=== PATIENT | female | born 1955 | race Caucasian/White ===

== ENCOUNTER 2017-02-03 00:11 | Emergency (ER) | payer BC ==
--- NOTE | 2017-02-03 00:32 | EDM.PDOC ---
ED HPI GENERAL MEDICAL PROBLEM - General Chief Complaint: Gastrointestinal Problem Stated Complaint: RECTAL BLEEDING Time Seen by Provider: 02/03/17 00:31 Source of Information: Reports: Patient - History of Present Illness INITIAL COMMENTS - FREE TEXT/NARRATIVE: HISTORY AND PHYSICAL: History of present illness: []Patient presents with bright red blood per rectum associated with bowel movement night at approximately 11:30, she states her tissue did have bright red blood and was saturated with blood after defecation, she denies constipation. She had some residual bleeding for about an hour after occurrence which has seemed to resolve. No associated fever nausea vomiting chills sweats no chest pain shortness of breath headache dizziness or palpitation no urine symptoms No prior colonoscopy Review of systems: As per history of present illness and below otherwise all systems reviewed and negative. Past medical history: As per history of present illness and as reviewed below otherwise noncontributory. Surgical history: As per history of present illness and as reviewed below otherwise noncontributory. Social history: No reported history of drug or alcohol abuse. Family history: As per history of present illness and as reviewed below otherwise noncontributory. Physical exam: HEENT: Atraumatic, normocephalic, pupils reactive, negative for conjunctival pallor or scleral icterus, mucous membranes moist, throat clear, neck supple, nontender, trachea midline. Lungs: Clear to auscultation, breath sounds equal bilaterally, chest nontender. Heart: S1S2, regular, negative for clicks, rubs, or JVD. Abdomen: Soft, nondistended, nontender. Negative for masses or hepatosplenomegaly. Negative for costovertebral tenderness. Pelvis: Stable nontender. Genitourinary: Deferred. Rectal: There is bright red blood per rectum, no active bleed at current , there are small nonthrombosed hemorrhoids present, blood does not seem to originate from external hemorrhoids on digital exam no mass scar or lesion Extremities: Atraumatic, negative for cords or calf pain. Neurovascular unremarkable. Neuro: Awake, alert, oriented. Cranial nerves II through XII unremarkable. Cerebellum unremarkable. Motor and sensory unremarkable throughout. Exam nonfocal. Diagnostics: []CBC CMP UA INR Therapeutics: []Protonix 80 mg IV Patient is offered admission, as we are on diversion she refused transfer to [facility] desires to go home and will return if symptoms persist or worsen ER referral for follow-up with general surgery was provided within 48 hours Impression: []Bright red blood per rectum-currently resolved Definitive disposition and diagnosis as appropriate pending reevaluation and review of above. rectal Pain Score (Numeric/FACES): 1 - Related Data Allergies Allergy/AdvReac Type Severity Reaction Status Date / Time NÉSTOR Inhibitors Allergy Cough Verified 02/03/17 00:22 codeine Allergy Vomiting Verified 02/03/17 00:22 hydrocodone Allergy Vomiting Verified 02/03/17 00:22 tramadol Allergy Vomiting Verified 02/03/17 00:22 Angiotensin Allergy Vomiting Uncoded 02/03/17 00:22 PET DANDER Allergy Sneezing Uncoded 02/03/17 00:22 Home Meds: Home Meds Atenolol [Tenormin] 25 mg PO ACBREAKFAST 12/29/13 [History] Glucosamine/D3/Boswellia Urszula [Osteo Bi-Flex Caplet] 1 each PO DAILY 12/29/13 [ History] Simvastatin [Zocor] 20 mg PO BEDTIME 12/29/13 [History] Vitamin B6-pyridOXINE [Vitamin B6] 18 mg PO DAILY 12/29/13 [History] Fish Oil/Borage/Flax/Om3,6,9#1 [Yeso 3-6-9 1,200 mg Softgel] 1 tab PO DAILY [History] Hydrochlorothiazide/Losartan [Hyzaar 50-12.5 MG] 1 tab PO DAILY 03/26/15 [ History] Meloxicam 1 tab PO DAILY 03/26/15 [History] Niacinamide 1 tab PO DAILY 03/26/15 [History] Aspirin 81 mg PO ASDIRECTED 02/03/17 [History] Past Medical History Other HEENT History: Hayfever, allergy triggers Other Respiratory History: Sleep apnea with machine Other Gastrointestinal History: Crohn's Disease-patient denies Other OB/BYN History: hx: ablation Other Musculoskeletal History: Debilitating arthritis, chronic pain, limited mobility Left Thumb, Left Foot pain Other Neuro History: Bilateral Carpal Tunnel Release - Past Surgical History Other Female Surgeries/Procedures: Hysteroscopy with Uterine ablation Other Musculoskeletal Surgeries/Procedures:: Left and Right Knee arthrosocopies , Left Total Knee Replacment Social & Family History - Tobacco Use Smoking Status *Q: Never Smoker Second Hand Smoke Exposure: No - Alcohol Use Days Per Week of Alcohol Use: 0 Number of Drinks Per Day: 0 Total Drinks Per Week: 0 - Recreational Drug Use Recreational Drug Use: No Drug Use in Last 12 Months: No ED ROS GENERAL - Review of Systems Review Of Systems: ROS reveals no pertinent complaints other than HPI. ED EXAM, GENERAL - Physical Exam Exam: See Below Course - Vital Signs Last Recorded V/S: Last Vital Signs Temp 36.1 C 02/03/17 00:27 Pulse 70 02/03/17 02:37 Resp 18 02/03/17 02:37 BP 179/83 H 02/03/17 02:37 Pulse Ox 98 02/03/17 02:37 - Orders/Labs/Meds Orders: Active Orders 24 hr Category Date Time Status Abdomen Pelvis w Cont [CT] Stat Exams 02/03/17 01:56 Taken CULTURE URINE [RM] Stat Lab 02/03/17 02:37 Uncollected Labs: Laboratory Tests 02/03/17 02/03/17 02/03/17 Range/Units 00:44 00:44 00:44 WBC 6.16 (4.0-11.0) K/uL RBC 4.31 (4.30-5.90) M/uL Hgb 13.1 (12.0-16.0) g/dL Hct 37.8 (36.0-46.0) % MCV 87.7 (80.0-98.0) fL MCH 30.4 (27.0-32.0) pg MCHC 34.7 (31.0-37.0) g/dL RDW Std Deviation 40.9 (28.0-62.0) fl RDW Coeff of She 13 (11.0-15.0) % Plt Count 248 (150-400) K/uL MPV 9.10 (7.40-12.00) fL Neut % (Auto) 50.2 (48.0-80.0) % Lymph % (Auto) 33.1 (16.0-40.0) % Duval % (Auto) 12.5 (0.0-15.0) % Eos % (Auto) 3.4 (0.0-7.0) % Baso % (Auto) 0.8 (0.0-1.5) % Neut # (Auto) 3.1 (1.4-5.7) K/uL Lymph # (Auto) 2.0 (0.6-2.4) K/uL Duval # (Auto) 0.8 (0.0-0.8) K/uL Eos # (Auto) 0.2 (0.0-0.7) K/uL Baso # (Auto) 0.1 (0.0-0.1) K/uL INR 0.97 (0.86-1.11) Sodium 140 (136-146) mmol/L Potassium 3.9 (3.5-5.1) mmol/L Chloride 105 (98-110) mmol/L Carbon Dioxide 25 (21-31) mmol/L BUN 18 (6.0-23.0) mg/dL Creatinine 0.8 (0.6-1.5) mg/dL Est Cr Clr Drug Dosing 68.26 mL/min Estimated GFR (MDRD) > 60.0 ml/min Glucose 138 H (60-110) mg/dL Calcium 9.8 (8.8-10.8) mg/dL Total Bilirubin 0.3 (0.1-1.5) mg/dL AST 17 (5-40) IU/L ALT 28 (8-54) IU/L Alkaline Phosphatase 46 (40-150) Total Protein 7.0 (6.0-8.0) g/dL Albumin 4.4 (3.4-4.8) g/dL Globulin 2.6 (2.0-3.5) g/dL Albumin/Globulin Ratio 1.7 (1.3-2.8) Urine Color Urine Appearance Urine pH (5.0-8.0) Ur Specific Lang[place] (1.001-1.035) Urine Protein (NEGATIVE) mg/dL Urine Glucose (UA) (NEGATIVE) mg/dL Urine Ketones (NEGATIVE) mg/dL Urine Occult Blood (NEGATIVE) Urine Nitrite (NEGATIVE) Urine Bilirubin (NEGATIVE) Urine Urobilinogen (<2.0) EU/dL Ur Leukocyte Esterase (NEGATIVE) Urine RBC (0-2/HPF) Urine WBC (0-5/HPF) Ur Epithelial Cells (NONE-FEW) Urine Bacteria (NEGATIVE) 02/03/17 Range/Units 01:21 WBC (4.0-11.0) K/uL RBC (4.30-5.90) M/uL Hgb (12.0-16.0) g/dL Hct (36.0-46.0) % MCV (80.0-98.0) fL MCH (27.0-32.0) pg MCHC (31.0-37.0) g/dL RDW Std Deviation (28.0-62.0) fl RDW Coeff of She (11.0-15.0) % Plt Count (150-400) K/uL MPV (7.40-12.00) fL Neut % (Auto) (48.0-80.0) % Lymph % (Auto) (16.0-40.0) % Duval % (Auto) (0.0-15.0) % Eos % (Auto) (0.0-7.0) % Baso % (Auto) (0.0-1.5) % Neut # (Auto) (1.4-5.7) K/uL Lymph # (Auto) (0.6-2.4) K/uL Duval # (Auto) (0.0-0.8) K/uL Eos # (Auto) (0.0-0.7) K/uL Baso # (Auto) (0.0-0.1) K/uL INR (0.86-1.11) Sodium (136-146) mmol/L Potassium (3.5-5.1) mmol/L Chloride (98-110) mmol/L Carbon Dioxide (21-31) mmol/L BUN (6.0-23.0) mg/dL Creatinine (0.6-1.5) mg/dL Est Cr Clr Drug Dosing mL/min Estimated GFR (MDRD) ml/min Glucose (60-110) mg/dL Calcium (8.8-10.8) mg/dL Total Bilirubin (0.1-1.5) mg/dL AST (5-40) IU/L ALT (8-54) IU/L Alkaline Phosphatase (40-150) Total Protein (6.0-8.0) g/dL Albumin (3.4-4.8) g/dL Globulin (2.0-3.5) g/dL Albumin/Globulin Ratio (1.3-2.8) Urine Color YELLOW Urine Appearance CLEAR Urine pH 6.0 (5.0-8.0) Ur Specific [place] 1.015 (1.001-1.035) Urine Protein NEGATIVE (NEGATIVE) mg/dL Urine Glucose (UA) NEGATIVE (NEGATIVE) mg/dL Urine Ketones NEGATIVE (NEGATIVE) mg/dL Urine Occult Blood SMALL H (NEGATIVE) Urine Nitrite NEGATIVE (NEGATIVE) Urine Bilirubin NEGATIVE (NEGATIVE) Urine Urobilinogen 0.2 (<2.0) EU/dL Ur Leukocyte Esterase SMALL (NEGATIVE) Urine RBC 0-3 (0-2/HPF) Urine WBC 1-3 (0-5/HPF) Ur Epithelial Cells OCCASIONAL (NONE-FEW) Urine Bacteria RARE (NEGATIVE) Meds: Medications Discontinued Medications Generic Name Dose Route Start Last Admin Trade Name Freq PRN Reason Stop Dose Admin Iopamidol 95 ml 02/03/17 02:28 02/03/17 02:29 Isovue Multipack-370 (76%) IVPUSH 02/03/17 02:29 95 ml ONETIME STA Administration Pantoprazole Sodium 80 mg 02/03/17 02:41 02/03/17 02:48 Protonix Iv IVPUSH 02/03/17 02:42 80 mg .BOLUS ONE Administration Departure - Departure Time of Disposition: 02:56 Disposition: Home, Self-Care 01 Condition: Good Clinical Impression: Bright red blood per rectum - Discharge Information Referrals: Edwin Johns MD [Primary Care Provider] - Forms: ED Department Discharge Additional Instructions: ER referral to general surgery to be seen within the next 48 hours and consideration for colonoscopy Return to ER if symptoms persist or worsen or new concerning symptoms such as lightheadedness, dizziness, shortness of breath, or fatigue Follow-up with primary care as needed [facility] - [facility] [address] [place] [id number] [facility] - General Surgery Professional [facility] [address] [place] [address], [address] [place] [address] The following information is given to patients seen in the emergency department who are being discharged to home. This information is to outline your options for follow-up care. We provide all patients seen in our emergency department with a follow-up referral. The need for follow-up, as well as the timing and circumstances, are variable depending upon the specifics of your emergency department visit. If you don't have a primary care physician on staff, we will provide you with a referral. We always advise you to contact your personal physician following an emergency department visit to inform them of the circumstance of the visit and for follow-up with them and/or the need for any referrals to a consulting specialist. The emergency department will also refer you to a specialist when appropriate. This referral assures that you have the opportunity for follow-up care with a specialist. All of these measure are taken in an effort to provide you with optimal care, which includes your follow-up. Under all circumstances we always encourage you to contact your private physician who remains a resource for coordinating your care. When calling for follow-up care, please make the office aware that this follow-up is from your recent emergency room visit. If for any reason you are refused follow-up, please contact the [facility] emergency department at and asked to speak to the emergency department charge nurse. - My Orders Last 24 Hours: My Active Orders 02/03/17 01:56 Abdomen Pelvis w Cont [CT] Stat 02/03/17 02:37 CULTURE URINE [RM] Stat - Assessment/Plan Last 24 Hours: My Active Orders 02/03/17 01:56 Abdomen Pelvis w Cont [CT] Stat 02/03/17 02:37 CULTURE URINE [RM] Stat
[2017-02-03 01:13] LABS: CHLORIDE,CL 105 mmol/L (98-110); SODIUM,NA 140 mmol/L (136-146)
[2017-02-03] MEDS ORDERED: Iopamidol 755 MG/ML 500 ML Multipack Bottle IVPUSH STA (02:28)
[2017-02-03] MEDS ORDERED: Pantoprazole 40 MG Vial IVPUSH ONE (02:41)
[2017-02-03 03:18] VITALS: BP 179/85
--- NOTE | 2017-02-03 11:08 | CT ---
EXAM DATE: 02/03/17 PATIENT'S AGE: 61 Patient: DARIAN KU Facility: [place], [place] Site . Site : 1955 Study: CT Abdomen/Pelvis W CONT [id number]/29/2017 2:31:37 AM Ordering Physician: Myra Chavez Final Report: INDICATION: Rectal bleeding with abdominal tenderness TECHNIQUE: CT abdomen and pelvis acquired with IV contrast. 95 cc Isovue 370 COMPARISON: None FINDINGS: Lower chest: Unremarkable. Liver: Unremarkable. Spleen: Unremarkable. Pancreas: Unremarkable. Gallbladder and bile ducts: Unremarkable. Kidneys: Punctate nonobstructing calculi inferior pole right kidney. Adrenal glands: Unremarkable. GI tract: Unremarkable. Appendix is normal. Vascular structures: Unremarkable. Lymph nodes: Unremarkable. Miscellaneous: Small fat containing umbilical hernia. No free air or significant free fluid. Pelvic Organs: Unremarkable. Bones: Unremarkable for age. IMPRESSION: No findings to explain the patient`s symptomatology. Punctate nonobstructing calculi inferior pole right kidney. Dictated by Agustín Mendez MD @ 02/03/2017 2:39:33 AM Dictated by: Agustín Mendez MD @ 02/03/2017 02:39:42 (Electronic Signature) Report Signed by Proxy. [facility] MEDICAL CENTERJu
== END 2017-02-03 03:16 | disposition home or self-care (01) ==
LOC: MW.ED 00:11
DX: K62.5 Hemorrhage of anus and rectum (principal); G47.30 Sleep apnea, unspecified; M19.90 Unspecified osteoarthritis, unspecified site; Z98.890 Other specified postprocedural states; Z88.5 Allergy status to narcotic agent; Z88.8 Allergy status to other drugs, medicaments and biological substances; Z91.048 Other nonmedicinal substance allergy status; Z79.899 Other long term (current) drug therapy; Z96.652 Presence of left artificial knee joint
CPT/HCPCS: 36415; 74177; 80053; 81001; 85025; 85610; 87086; 96374; 99283; C9113; Q9967

== ENCOUNTER 2017-03-19 09:01 | Day surgery (SDC) | payer BC ==
[~2017-03-19 09:01] MED LIST: Lactated Ringers 1,000 ML IV SCH; Lidocaine 2% 5 ML SDV ONE; Propofol 200 MG/20 ML SDV ONE; Sodium Chloride 0.9% 10 ML Syringe FLUSH PRN; Sodium Chloride 0.9% 2.5 ML Syringe FLUSH PRN; fentaNYL 100 MCG/2 ML SDV ONE
--- NOTE | 2017-03-19 09:31 | PCM.PREANE ---
Preanesthetic Assessment - Anesthesia/Transfusion/Family Hx Anesthesia History: Prior Anesthesia Without Reaction Other Type of Anesthesia Reaction Comment: Nausea & vomiting always post, Sister is the same Family History of Anesthesia Reaction: No Transfusion History: No Prior Transfusion(s) Intubation History: Unknown - Review of Systems General: No Symptoms Pulmonary: No Symptoms Cardiovascular: No Symptoms Gastrointestinal: No Symptoms, Other (screening colonoscopy) Neurological: No Symptoms Other: Reports: None - Physical Assessment O2 Sat by Pulse Oximetry: 98 Respiratory Rate: 16 Vital Signs: Last Vital Signs Temp 36.3 C 03/19/17 09:13 Pulse 71 03/19/17 09:13 Resp 16 03/19/17 09:13 BP 170/78 H 03/19/17 09:13 Pulse Ox 98 03/19/17 09:13 Height: 1.68 m Weight: 93.8 kg ASA Class: 3 Mental Status: Alert & Oriented x3 Airway Class: Mallampati = 2 Dentition: Reports: Normal Dentition, [place](s) (upper front (left)) Thyro-Mental Finger Breadths: 3 Mouth Opening Finger Breadths: 3 ROM/Head Extension: Full Lungs: Clear to Auscultation, Normal Respiratory Effort Cardiovascular: Regular Rate, Regular Rhythm - Allergies Allergies/Adverse Reactions: Allergies Allergy/AdvReac Type Severity Reaction Status Date / Time NÉSTOR Inhibitors Allergy Cough Verified 02/03/17 00:22 codeine Allergy Vomiting Verified 02/03/17 00:22 hydrocodone Allergy Vomiting Verified 02/03/17 00:22 tramadol Allergy Vomiting Verified 02/03/17 00:22 Angiotensin Allergy Vomiting Uncoded 02/03/17 00:22 PET DANDER Allergy Sneezing Uncoded 02/03/17 00:22 - Blood Blood Available: No - Anesthesia Plan Pre-Op Medication Ordered: None - Acknowledgements Anesthesia Type Planned: MAC Pt an Appropriate Candidate for the Planned Anesthesia: Yes Alternatives and Risks of Anesthesia Discussed w Pt/Guardian: Yes Pt/Guardian Understands and Agrees with Anesthesia Plan: Yes PreAnesthesia Questionnaire HEENT History: Reports: Allergic Rhinitis Other HEENT History: Hayfever, wears glasses, has upper front dental implant Cardiovascular History: Reports: High Cholesterol, Hypertension Respiratory History: Reports: Sleep Apnea, Other (See Below) Other Respiratory History: Sleep apnea uses CPAP Gastrointestinal History: Reports: GERD, Hemorrhoids Other Gastrointestinal History: Crohn's Disease-patient denies Genitourinary History: Reports: None 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: Endometrial Ablation, Musculoskeletal History: Reports: Arthritis Neurological History: Reports: None Psychiatric History: Reports: Anxiety, Depression Endocrine/Metabolic History: Reports: Diabetes, Type II, Obesity/BMI 30+ Hematologic History: Reports: None Immunologic History: Reports: None Oncologic (Cancer) History: Reports: None Dermatologic History: Reports: None - Infectious Disease History Infectious Disease History: Reports: None - Past Surgical History Head Surgeries/Procedures: Reports: None Female Surgical History: Reports: Cystoscopy, Endometrial Ablation, Tubal Ligation, Other (See Below) Other Female Surgeries/Procedures: Hysteroscopy with Uterine ablation Musculoskeletal Surgical History: Reports: Arthroscopic Knee (bilateral), Carpal Tunnel, Knee Replacement (left) Other Musculoskeletal Surgeries/Procedures:: Left and Right Knee arthrosocopies , Left Total Knee Replacment, surgery to left thumb, [facility] - SUBSTANCE USE Smoking Status *Q: Never Smoker Second Hand Smoke Exposure: No Days Per Week of Alcohol Use: 0 Number of Drinks Per Day: 0 Total Drinks Per Week: 0 Recreational Drug Use History: No - HOME MEDS Home Medications: Home Meds Atenolol [Tenormin] 12.5 mg PO ACBREAKFAST 12/29/13 [History] Simvastatin [Zocor] 20 mg PO BEDTIME 12/29/13 [History] Meloxicam 1 tab PO DAILY 03/26/15 [History] Niacinamide 1 tab PO BEDTIME 03/26/15 [History] Aspirin 81 mg PO ASDIRECTED 02/03/17 [History] Citalopram Hydrobromide [Celexa] 40 mg PO DAILY 03/17/17 [History] Famotidine 40 mg PO ASDIRECTED 03/17/17 [History] Losartan/Hydrochlorothiazide [Hyzaar 50-12.5 Tablet] 1 tab PO DAILY 03/17/17 [ History] Watkins-3S/DHA/Epa/Fish Oil [Fish Oil Watkins-3 Softgel] 3 tab PO BID 03/17/17 [ History] metFORMIN HCl [Metformin HCl] 2 tab PO BID 03/17/17 [History] buPROPion HCl [Wellbutrin Xl] 150 mg PO DAILY 03/18/17 [History] - CURRENT (IN HOUSE) MEDS Current Meds: Current Medications Lactated Ringer's (Ringers, Lactated) 1,000 mls @ 125 mls/hr IV ASDIRECTED NATALIYA Last Admin: 03/19/17 09:16 Dose: 125 mls/hr Sodium Chloride (Saline Flush) 10 ml FLUSH ASDIRECTED PRN PRN Reason: Keep Vein Open Sodium Chloride (Saline Flush) 2.5 ml FLUSH ASDIRECTED PRN PRN Reason: Keep Vein Open Discontinued Medications Fentanyl (Sublimaze) Confirm Administered Dose 100 mcg .ROUTE .STK-MED ONE Stop: 03/19/17 07:53 Lidocaine (Xylocaine-Mpf 2%) Confirm Administered Dose 5 ml .ROUTE .STK-MED ONE Stop: 03/19/17 07:52 Propofol (Diprivan 20 Ml) Confirm Administered Dose 400 mg .ROUTE .STK-MED ONE Stop: 03/19/17 07:53
[2017-03-19] MEDS ORDERED: ePHEDrine 50 MG/ML SDV ONE (09:39)
[2017-03-19 10:26] VITALS: BP 126/63
[2017-03-19] MEDS ORDERED: Ondansetron 4 MG/2 ML SDV ONE (10:34)
--- NOTE | 2017-03-19 10:52 | PCM.OPNOTE ---
- General Post-Op/Procedure Note Date of Surgery/Procedure: 03/19/17 Operative Procedure(s): colonoscopy Findings: Descending colon polyp x 3, diverticulosis Pre Op Diagnosis: colonoscopy Post-Op Diagnosis: diverticulosis, descending colon polyp x 3 Anesthesia Technique: MAC Primary Surgeon: Susan Jamison Condition: Good Free Text/Narrative:: Intake & Output 03/18/17 03/19/17 03/19/17 22:59 06:59 14:59 Intake Total 800 Balance 800
--- NOTE | 2017-03-20 10:23 | OR ---
SURGEON: SUPA MILLER MD DATE OF PROCEDURE: 03/19/2017 PREOPERATIVE DIAGNOSIS: Bright red bleeding per rectum. POSTOPERATIVE DIAGNOSIS: Three descending colon polyps, diverticulosis. PROCEDURE PERFORMED: Diagnostic colonoscopy. ANESTHESIA: MAC. INSTRUMENT USED: Olympus colonoscope. PREPARATION: Good. LIMITATIONS: None. EXTENT OF EXAM: To the cecum. INDICATIONS: The patient is a 61-year-old female, who presented to the emergency room with bright red bleeding per rectum. She has not had any episode since. The decision was made to perform a diagnostic colonoscopy. We discussed the procedure as well as expected perioperative course. We discussed the risks, including bleeding, infection, or damage to surrounding structures, including perforation. The patient verbalized understanding and wished to proceed. PROCEDURE IN DETAIL: The patient was brought into the endoscopy suite and placed in the left lateral decubitus position. A time-out was completed verifying the patient's name, age, date of , allergies, and procedure to be performed. Monitored anesthesia care was induced and continuous oxygen was provided via nasal cannula throughout the procedure. After adequate sedation was achieved, digital rectal exam was performed. This showed no evidence of hemorrhoidal disease externally and no redundant hemorrhoidal tissue internally. A well lubricated colonoscope was inserted into the rectum and advanced under direct visualization to the level of the cecum. The cecum was identified by both visual and anatomic landmarks. A photograph was taken of the cecal cap as well as with the scope retroflexed within the cecum. The scope was then straightened out and fully withdrawn while examining the color, texture, anatomy, and integrity of the mucosa from the cecum to the anal canal. The patient was found to have three descending colon polyps, which were removed using a cold biopsy forceps. The patient was found to have diverticulosis within the distal aspect of her colon. The scope was then brought into the rectum and retroflexed to allow visualization of the anal canal opening. This appeared normal and a photograph was taken. The scope was straightened out and removed from the patient. The cecum to anus time was 17 minutes. The patient was taken to the PACU in stable condition. ENDOSCOPIC DIAGNOSES: 1. Descending colon polyps x3. 2. Diverticulosis. RECOMMENDATION: Follow up in clinic in 2 weeks. ARMEN ASCENCIO /[id number]
== END 2017-03-19 10:55 | disposition home or self-care (01) ==
LOC: MW.SDS 09:01
PROVIDERS: ATTEND Surgery
DX: D12.4 Benign neoplasm of descending colon (principal); K57.30 Diverticulosis of large intestine without perforation or abscess without bleeding; F32.9 Major depressive disorder, single episode, unspecified; K21.9 Gastro-esophageal reflux disease without esophagitis; Z96.659 Presence of unspecified artificial knee joint; E78.00 Pure hypercholesterolemia, unspecified; I10 Essential (primary) hypertension; G47.30 Sleep apnea, unspecified; Z88.8 Allergy status to other drugs, medicaments and biological substances; Z79.82 Long term (current) use of aspirin; Z79.84 Long term (current) use of oral hypoglycemic drugs; Z79.899 Other long term (current) drug therapy; Z72.0 Tobacco use; Z98.51 Tubal ligation status
CPT/HCPCS: 45380; 82962; 88305; J3010; J7120; 00810; J2405; J2704

== ENCOUNTER 2017-08-14 10:03 | Day surgery (SDC) | payer BC ==
--- NOTE | 2017-08-14 08:30 | PCM.PREANE ---
Preanesthetic Assessment - Anesthesia/Transfusion/Family Hx Anesthesia History: Prior Anesthesia Without Reaction Other Type of Anesthesia Reaction Comment: Nausea & vomiting always post, Sister is the same Transfusion History: No Prior Transfusion(s) Intubation History: Unknown - Physical Assessment Height: 1.68 m Weight: 92.533 kg - Allergies Allergies/Adverse Reactions: Allergies Allergy/AdvReac Type Severity Reaction Status Date / Time NÉSTOR Inhibitors Allergy Nausea and Verified 08/11/17 10:03 Vomiting codeine Allergy Vomiting Verified 08/11/17 10:14 hydrocodone Allergy Vomiting Verified 08/11/17 10:14 tramadol Allergy Vomiting Verified 08/11/17 10:14 Angiotensin Allergy Vomiting Uncoded 02/03/17 00:22 PET DANDER Allergy Sneezing Uncoded 02/03/17 00:22 PreAnesthesia Questionnaire HEENT History: Reports: Allergic Rhinitis Other HEENT History: Hayfever, wears glasses, has upper front dental implant Cardiovascular History: Reports: High Cholesterol, Hypertension Respiratory History: Reports: Sleep Apnea Other Respiratory History: Sleep apnea uses CPAP Gastrointestinal History: Reports: Colon Polyp, Diverticulosis, GERD, Hemorrhoids Genitourinary History: Reports: UTI, Recurrent 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, Musculoskeletal History: Reports: Arthritis Neurological History: Reports: None Psychiatric History: Reports: Anxiety, Depression Endocrine/Metabolic History: Reports: Diabetes, Type II, Obesity/BMI 30+ Hematologic History: Reports: None Immunologic History: Reports: None Oncologic (Cancer) History: Reports: None Dermatologic History: Reports: None - Infectious Disease History Infectious Disease History: Reports: None - Past Surgical History Head Surgeries/Procedures: Reports: None Female Surgical History: Reports: Cystoscopy, Endometrial Ablation, Tubal Ligation, Other (See Below) Other Female Surgeries/Procedures: Hysteroscopy with Uterine ablation Musculoskeletal Surgical History: Reports: Arthroscopic Knee, Carpal Tunnel, Knee Replacement Other Musculoskeletal Surgeries/Procedures:: Left and Right Knee arthrosocopies , Left Total Knee Replacment, surgery to left thumb, [facility] - SUBSTANCE USE Smoking Status *Q: Never Smoker Second Hand Smoke Exposure: No Days Per Week of Alcohol Use: 0 Number of Drinks Per Day: 0 Total Drinks Per Week: 0 Recreational Drug Use History: No - HOME MEDS Home Medications: Home Meds Simvastatin [Zocor] 20 mg PO BEDTIME 12/29/13 [History] Niacinamide 1 tab PO BEDTIME 03/26/15 [History] Aspirin 81 mg PO ASDIRECTED 02/03/17 [History] Citalopram Hydrobromide [Celexa] 40 mg PO DAILY 03/17/17 [History] Famotidine 40 mg PO ASDIRECTED 03/17/17 [History] [place]-3S/DHA/Epa/Fish Oil [Fish Oil [place]-3 Softgel] 3 tab PO BID 03/17/17 [ History] metFORMIN HCl [Metformin HCl] 2 tab PO BID 03/17/17 [History] buPROPion HCl [Wellbutrin Xl] 150 mg PO ASDIRECTED 03/18/17 [History] Hydrochlorothiazide/Losartan [Hyzaar 50-12.5 MG] 1 tab PO DAILY 08/11/17 [ History] - CURRENT (IN HOUSE) MEDS Current Meds: Current Medications Hydrocodone Bitart/Acetaminophen ([place] 325-5 Mg) 1 tab PO Q4H PRN PRN Reason: Pain Cefazolin Sodium/Dextrose 2 gm (/ Premix) 50 mls @ 100 mls/hr IV ONETIME ONE Stop: 08/14/17 08:29 Lactated Ringer's (Ringers, Lactated) 1,000 mls @ 125 mls/hr IV ASDIRECTED [facility]AL[facility] Discontinued Medications Bupivacaine HCl/Epinephrine Bitart (Marcaine 0.25%/Epinephrine 1:200,000) 10 ml INJECT ONETIME ONE Stop: 08/14/17 08:01 Bupivacaine HCl/Epinephrine Bitart (Sensorc Mpf 0.25%-Epi 1:[id number]) Confirm Administered Dose 30 mls @ as directed .ROUTE .STK-MED ONE Stop: 08/14/17 07:21
[~2017-08-14 10:03] MED LIST changes: +Acetaminophen/HYDROcodone 325-5 MG Tab PO PRN; +Bupivacaine 0.25%/EPINEPHrine 1:200,000 10 ML SDV INJECT ONE; +Bupivacaine 25%/EPINEPHrine/PF 30 ML ONE; +Midazolam 1 MG/ML 2 ML SDV ONE; -Sodium Chloride 0.9% 10 ML Syringe FLUSH PRN; -Sodium Chloride 0.9% 2.5 ML Syringe FLUSH PRN; +ceFAZolin 2 GM in Premix Bag 1 BAG IV ONE
--- NOTE | 2017-08-14 10:31 | PCM.PREANE ---
Preanesthetic Assessment - Anesthesia/Transfusion/Family Hx Anesthesia History: Prior Anesthesia Without Reaction Other Type of Anesthesia Reaction Comment: Nausea & vomiting always post, Sister is the same Family History of Anesthesia Reaction: No Transfusion History: No Prior Transfusion(s) Intubation History: Unknown - Review of Systems General: No Symptoms Pulmonary: No Symptoms Cardiovascular: No Symptoms Gastrointestinal: No Symptoms Neurological: No Symptoms Other: Reports: None - Physical Assessment NPO Status Date: 08/13/17 Height: 1.68 m Weight: 92.533 kg ASA Class: 2 Mental Status: Alert & Oriented x3 Airway Class: Mallampati = 2 Dentition: Reports: Normal Dentition ROM/Head Extension: Full Lungs: Clear to Auscultation, Normal Respiratory Effort Cardiovascular: Regular Rate, Regular Rhythm - Allergies Allergies/Adverse Reactions: Allergies Allergy/AdvReac Type Severity Reaction Status Date / Time NÉSTOR Inhibitors Allergy Nausea and Verified 08/11/17 10:03 Vomiting codeine Allergy Vomiting Verified 08/11/17 10:14 hydrocodone Allergy Vomiting Verified 08/11/17 10:14 tramadol Allergy Vomiting Verified 08/11/17 10:14 Angiotensin Allergy Vomiting Uncoded 02/03/17 00:22 PET DANDER Allergy Sneezing Uncoded 02/03/17 00:22 - Anesthesia Plan Pre-Op Medication Ordered: None - Acknowledgements Anesthesia Type Planned: General Anesthesia Pt an Appropriate Candidate for the Planned Anesthesia: Yes Alternatives and Risks of Anesthesia Discussed w Pt/Guardian: Yes Pt/Guardian Understands and Agrees with Anesthesia Plan: Yes Additional Comments: PMH: gerd, htn, hld, GUILLE uses CPAP, DM2 (sugar 107 this am) PreAnesthesia Questionnaire HEENT History: Reports: Allergic Rhinitis Other HEENT History: Hayfever, wears glasses, has upper front dental implant Cardiovascular History: Reports: High Cholesterol, Hypertension Respiratory History: Reports: Sleep Apnea Other Respiratory History: Sleep apnea uses CPAP Gastrointestinal History: Reports: Colon Polyp, Diverticulosis, GERD, Hemorrhoids Genitourinary History: Reports: UTI, Recurrent 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, Musculoskeletal History: Reports: Arthritis Neurological History: Reports: None Psychiatric History: Reports: Anxiety, Depression Endocrine/Metabolic History: Reports: Diabetes, Type II, Obesity/BMI 30+ Hematologic History: Reports: None Immunologic History: Reports: None Oncologic (Cancer) History: Reports: None Dermatologic History: Reports: None - Infectious Disease History Infectious Disease History: Reports: None - Past Surgical History Head Surgeries/Procedures: Reports: None Female Surgical History: Reports: Cystoscopy, Endometrial Ablation, Tubal Ligation, Other (See Below) Other Female Surgeries/Procedures: Hysteroscopy with Uterine ablation Musculoskeletal Surgical History: Reports: Arthroscopic Knee, Carpal Tunnel, Knee Replacement Other Musculoskeletal Surgeries/Procedures:: Left and Right Knee arthrosocopies , Left Total Knee Replacment, surgery to left thumb, [facility] - SUBSTANCE USE Smoking Status *Q: Never Smoker Second Hand Smoke Exposure: No Days Per Week of Alcohol Use: 0 Number of Drinks Per Day: 0 Total Drinks Per Week: 0 Recreational Drug Use History: No - HOME MEDS Home Medications: Home Meds Simvastatin [Zocor] 20 mg PO BEDTIME 12/29/13 [History] Niacinamide 1 tab PO BEDTIME 03/26/15 [History] Aspirin 81 mg PO ASDIRECTED 02/03/17 [History] Citalopram Hydrobromide [Celexa] 40 mg PO DAILY 03/17/17 [History] Famotidine 40 mg PO ASDIRECTED 03/17/17 [History] [place]-3S/DHA/Epa/Fish Oil [Fish Oil [place]-3 Softgel] 3 tab PO BID 03/17/17 [ History] metFORMIN HCl [Metformin HCl] 2 tab PO BID 03/17/17 [History] buPROPion HCl [Wellbutrin Xl] 150 mg PO ASDIRECTED 03/18/17 [History] Hydrochlorothiazide/Losartan [Hyzaar 50-12.5 MG] 1 tab PO DAILY 08/11/17 [ History] - CURRENT (IN HOUSE) MEDS Current Meds: Current Medications Hydrocodone Bitart/Acetaminophen ([place] 325-5 Mg) 1 tab PO Q4H PRN PRN Reason: Pain Lactated Ringer's (Ringers, Lactated) 1,000 mls @ 125 mls/hr IV ASDIRECTED NATALIYA Last Admin: 08/14/17 10:29 Dose: 125 mls/hr Discontinued Medications Bupivacaine HCl/Epinephrine Bitart ([place] 0.25%/Epinephrine 1:200,000) 10 ml INJECT ONETIME ONE Stop: 08/14/17 08:01 Fentanyl (Sublimaze) Confirm Administered Dose 100 mcg .ROUTE .STK-MED ONE Stop: 08/14/17 09:41 Cefazolin Sodium/Dextrose 2 gm (/ Premix) 50 mls @ 100 mls/hr IV ONETIME ONE Stop: 08/14/17 08:29 Bupivacaine HCl/Epinephrine Bitart (Sensorc Mpf 0.25%-Epi 1:[id number]) Confirm Administered Dose 30 mls @ as directed .ROUTE .STK-MED ONE Stop: 08/14/17 07:21 Lidocaine (Xylocaine-Mpf 2%) Confirm Administered Dose 5 ml .ROUTE .STK-MED ONE Stop: 08/14/17 09:41 Midazolam HCl (Versed 1 Mg/Ml) Confirm Administered Dose 2 mg .ROUTE .STK-MED ONE Stop: 08/14/17 09:41 Propofol (Diprivan 20 Ml) Confirm Administered Dose 200 mg .ROUTE .STK-MED ONE Stop: 08/14/17 09:40
[2017-08-14] MEDS ORDERED: Ondansetron 4 MG/2 ML SDV ONE (11:16)
[2017-08-14] MEDS ORDERED: ceFAZolin 1 GM Vial ONE (11:16)
[2017-08-14] MEDS ORDERED: diphenhydrAMINE 50 MG/ML SDV ONE (11:16)
[2017-08-14] MEDS ORDERED: Propofol 200 MG/20 ML SDV ONE (11:17)
[2017-08-14] MEDS ORDERED: ePHEDrine 50 MG/ML SDV ONE (11:32)
[2017-08-14] MEDS ORDERED: HYDROmorphone 2 MG/ML SDV ONE (11:34)
[2017-08-14] MEDS ORDERED: fentaNYL 100 MCG/2 ML SDV IVPUSH PRN (13:20)
--- NOTE | 2017-08-14 13:51 | PCM.POSTAN ---
POST ANESTHESIA ASSESSMENT - MENTAL STATUS Mental Status: Alert, Oriented - RESPIRATORY Respiratory Status: Respiratory Rate WNL, Airway Patent, O2 Saturation Stable - GASTROINTESTINAL GI Status: No Symptoms - POST OP HYDRATION Hydration Status: Adequate & Stable
--- NOTE | 2017-08-14 14:26 | PCM48HPAN ---
Post Anesthesia Note - EVALUATION WITHIN 48HRS OF ANESTHETIC Vital Signs in Normal Range: Yes Patient Participated in Evaluation: Yes Respiratory Function Stable: Yes Airway Patent: Yes Cardiovascular Function Stable: Yes Hydration Status Stable: Yes Pain Control Satisfactory: Yes Nausea and Vomiting Control Satisfactory: Yes Mental Status Recovered: Yes Resp Rate: 12
[2017-08-14 15:13] VITALS: BP 155/72
--- NOTE | 2017-08-14 16:37 | PCM.OPNOTE ---
- General Post-Op/Procedure Note Date of Surgery/Procedure: 08/14/17 Operative Procedure(s): rigth trapeziectomy with ligament interposition reconstruction using the FCR tendon Pre Op Diagnosis: right cmc arthritis Post-Op Diagnosis: Same Anesthesia Technique: General LMA, Local Primary Surgeon: Karen Chavira Collar Tacker: Kaylan Medrano Reason Collar Tacker Was Necessary: Retraction prepping draping and closure assistance. Complications: None Condition: Good Free Text/Narrative:: Intake & Output 08/14/17 08/14/17 08/14/17 07:59 15:59 23:59 Intake Total 1200 Balance 1200 [id number]
--- NOTE | 2017-08-14 19:21 | OR ---
SURGEON: JAYSHREE BUNN MD DATE OF PROCEDURE: 08/14/2017 PREOPERATIVE DIAGNOSIS: Right carpometacarpal arthritis. POSTOPERATIVE DIAGNOSIS: Right carpometacarpal arthritis. PROCEDURE: 1. Right thumb carpometacarpal arthroplasty with trapeziectomy. 2. Proximal metacarpal resection of the thumb. 3. Ligament reconstruction of thumb, carpometacarpal joint with flexor carpi radialis tendon interposition. INDICATIONS: Fanta is a 61-year-old female with right CMC arthritis. She has failed conservative management. Risks and benefits were discussed with her in detail including but not limited to, bleeding, infection, damage to underlying and overlying structures, possible need for future interventions, and possible scarring. PROCEDURE IN DETAIL: After informed consent was obtained and placed on the chart, the patient was brought to the operating theater and laid in supine position. After adequate general anesthesia was obtained, the area was prepped and draped in normal fashion using ChloraPrep cleansing solution. Once adequately prepped and draped, attention was then paid to time-out to confirm side and site. The arm was then exsanguinated and the tourniquet was insufflated to 200 mmHg. Attention was then paid to incision over the junction of the volar and dorsal surface of the right thumb. Dissection was carried down through the skin using a 15 blade and subcutaneous tissues using a Littler scissors with care taken to protect the branches of the superficial radial nerve. The carpometacarpal joint capsule was reached and had transected sharply using a 15 blade. Bovie electrocautery was then used to elevate the capsule off the proximal metacarpal and trapezium. The trapezium was easily identified and confirmed using fluoroscopy. The trapezium was removed in one piece and the scaphoid trapezial joint was appreciated to be arthritic. Once the trapezium was removed and sent for pathology, attention was paid to meticulous hemostasis and harvest of the flexor carpi radialis tendon. The tendon was easily located in the midforearm using transverse separate incision. Dissection was carried down to the tendinous insertion and this was transected. The tendon was then brought through distally into the trapeziectomy site. Attention was then paid to resection of the proximal metacarpal using a flat saw blade. This was done in an angled fashion to allow better opposition of the thumb. Once this was removed en bloc with copious irrigation, a 3 mm bur was then used to enter the metacarpal laterally and bur through the canal. The flexor carpi radialis tendon was then passed through the bur site and sutured back upon itself to restore appropriate opposition and position of the thumb. A 4-0 FiberWire suture was used in a double [id number] fashion to secure this. Once secured in place, the remainder of the tendon was rolled into an anchovy and sutured together. This was then placed into the previous trapezium site. The wound was copiously irrigated and the tourniquet was desufflated. Meticulous hemostasis was obtained. The joint capsule was closed using a 4-0 Monocryl stitch in a horizontal mattress in a [id number] fashion. The skin was then closed using deep 4-0 Monocryl in a running 4-0 subcuticular for the skin. The proximal harvest site for the flexor carpi radialis was closed using deep Monocryl in a running subcuticular. These were dressed with Steri-Strips. The thumb was dressed with Steri-Strips, fluffs, and a short-arm thumb spica splint made with plaster. A 0.25% Marcaine was used in a field block of the area prior to beginning of the case. She tolerated this well. All counts and needles were correct at the end of the case. FOLLOWUP INSTRUCTIONS: The patient will see us in clinic in approximately 2 weeks or sooner with any problems, questions, or concerns. She was given a prescription for [place] for pain. She was also given a prescription for nausea medication just in case. JAY / SONU /[id number] MTDD
--- NOTE | 2017-08-17 09:08 | CR ---
EXAMINATION: Right hand HISTORY: Trapeziectomy COMPARISON: None TECHNIQUE: A total 7 operative control films demonstrated. FINDINGS/IMPRESSION: Operative control films demonstrate changes secondary to right wrist trapeziecto my.
== END 2017-08-14 15:15 | disposition home or self-care (01) ==
LOC: MW.SDS 10:03
PROVIDERS: ATTEND Plastic Surgery
DX: M18.11 Unilateral primary osteoarthritis of first carpometacarpal joint, right hand (principal); K21.9 Gastro-esophageal reflux disease without esophagitis; I10 Essential (primary) hypertension; E78.5 Hyperlipidemia, unspecified; G47.33 Obstructive sleep apnea (adult) (pediatric); E11.9 Type 2 diabetes mellitus without complications; E66.9 Obesity, unspecified; Z68.30 Body mass index [BMI] 30.0-30.9, adult; Z88.8 Allergy status to other drugs, medicaments and biological substances; Z88.5 Allergy status to narcotic agent; Z88.6 Allergy status to analgesic agent; Z99.89 Dependence on other enabling machines and devices; Z79.899 Other long term (current) drug therapy; Z79.84 Long term (current) use of oral hypoglycemic drugs
CPT/HCPCS: 25447; 26480; 76000; J0690; J1170; J1200; J2250; J2405; J3010; J7120; 01830; 88302; 88311; J2704

== ENCOUNTER 2018-07-12 08:21 | Inpatient (IN) | payer BC ==
[~2018-07-12 08:21] MED LIST changes: +Acetaminophen 1,000 MG in Premix Bag 1 BAG IV SCH; -Acetaminophen/HYDROcodone 325-5 MG Tab PO PRN; -Bupivacaine 0.25%/EPINEPHrine 1:200,000 10 ML SDV INJECT ONE; -Bupivacaine 25%/EPINEPHrine/PF 30 ML ONE; +Famotidine 20 MG/2 ML SDV IVPUSH SCH; +Ketorolac 30 MG/ML SDV IVPUSH SCH; -Lactated Ringers 1,000 ML IV SCH; -Lidocaine 2% 5 ML SDV ONE; -Midazolam 1 MG/ML 2 ML SDV ONE; -Propofol 200 MG/20 ML SDV ONE; +Ropivacaine 49.25 ML, Ketorolac 30 MG, EPINEPHrine 0.5 MG, cloNIDine 80 MCG in Sodium C... INJECT SCH; +Scopolamine 1.5 MG Transdermal Patch TRDERM SCH; +Tranexamic Acid 2,000 MG in Sodium Chloride 0.9% 100 ML IV ONE; -ceFAZolin 2 GM in Premix Bag 1 BAG IV ONE; +ceFAZolin 2 GM in Premix Bag 1 BAG IV SCH; -fentaNYL 100 MCG/2 ML SDV ONE
[2018-07-12] MEDS: Lactated Ringers 1,000 ML IV SCH ×2 (08:45→14:41)
[2018-07-12] MEDS ORDERED: Ondansetron 4 MG/2 ML SDV ONE (09:01)
[2018-07-12] MEDS ORDERED: Lidocaine 2% 5 ML SDV ONE (09:01)
[2018-07-12] MEDS ORDERED: Propofol 200 MG/20 ML SDV ONE (09:01)
[2018-07-12] MEDS ORDERED: fentaNYL 100 MCG/2 ML SDV ONE ×2 (09:02)
[2018-07-12] MEDS ORDERED: Midazolam 1 MG/ML 2 ML SDV ONE (09:02)
--- NOTE | 2018-07-12 09:12 | PCM.PREANE ---
Preanesthetic Assessment - Anesthesia/Transfusion/Family Hx Anesthesia History: Prior Anesthesia Without Reaction Other Type of Anesthesia Reaction Comment: Nausea & vomiting always post, Sister is the same Family History of Anesthesia Reaction: No Transfusion History: No Prior Transfusion(s) Intubation History: Unknown - Review of Systems General: No Symptoms Pulmonary: No Symptoms Cardiovascular: No Symptoms Gastrointestinal: No Symptoms Neurological: No Symptoms Other: Reports: None - Physical Assessment Height: 1.68 m Weight: 90.718 kg ASA Class: 3 Mental Status: Alert & Oriented x3 Airway Class: Mallampati = 2 Dentition: Reports: Normal Dentition, [place](s) (x1 #9) Thyro-Mental Finger Breadths: 3 Mouth Opening Finger Breadths: 3 ROM/Head Extension: Full Lungs: Clear to Auscultation, Normal Respiratory Effort Cardiovascular: Regular Rate, Regular Rhythm - Allergies Allergies/Adverse Reactions: Allergies Allergy/AdvReac Type Severity Reaction Status Date / Time NÉSTOR Inhibitors Allergy Nausea and Verified 07/08/18 09:24 Vomiting codeine Allergy Vomiting Verified 07/08/18 09:24 tramadol Allergy Vomiting Verified 07/08/18 09:24 Angiotensin Allergy Vomiting Uncoded 02/03/17 00:22 PET DANDER Allergy Sneezing Uncoded 02/03/17 00:22 - Blood Blood Available: No - Anesthesia Plan Pre-Op Medication Ordered: None Beta Latoya: Atenolol Med Last Dose Date: 07/12/18 Med Last Dose Time: 07:00 - Acknowledgements Anesthesia Type Planned: Spinal (general anesthesia back up plan) Pt an Appropriate Candidate for the Planned Anesthesia: Yes Alternatives and Risks of Anesthesia Discussed w Pt/Guardian: Yes Pt/Guardian Understands and Agrees with Anesthesia Plan: Yes PreAnesthesia Questionnaire HEENT History: Reports: Allergic Rhinitis, Other (See Below) Other HEENT History: wears glasses, has upper front dental implant Cardiovascular History: Reports: High Cholesterol, Hypertension Respiratory History: Reports: Sleep Apnea Other Respiratory History: Sleep apnea uses CPAP Gastrointestinal History: Reports: Colon Polyp, Diverticulosis, GERD, Hemorrhoids Genitourinary History: Reports: UTI, Recurrent 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, Musculoskeletal History: Reports: Arthritis Neurological History: Reports: Neuropathy, Peripheral Psychiatric History: Reports: Anxiety, Depression Endocrine/Metabolic History: Reports: Diabetes, Type II, Obesity/BMI 30+ Hematologic History: Reports: None Immunologic History: Reports: None Oncologic (Cancer) History: Reports: None Dermatologic History: Reports: None - Infectious Disease History Infectious Disease History: Reports: None - Past Surgical History Head Surgeries/Procedures: Reports: None GI Surgical History: Reports: Colonoscopy Female Surgical History: Reports: Cystoscopy, Endometrial Ablation, Tubal Ligation, Other (See Below) Other Female Surgeries/Procedures: Hysteroscopy with Uterine ablation Musculoskeletal Surgical History: Reports: Arthroscopic Knee, Carpal Tunnel, Knee Replacement Other Musculoskeletal Surgeries/Procedures:: Left and Right Knee arthrosocopies , Left Total Knee Replacment 4 years ago. , surgery to paolo thumbs, [facility] - SUBSTANCE USE Smoking Status *Q: Never Smoker Recreational Drug Use History: No - HOME MEDS Home Medications: Home Meds Simvastatin [Zocor] 20 mg PO BEDTIME 12/29/13 [History] Niacinamide 1 tab PO BEDTIME 03/26/15 [History] Aspirin 81 mg PO DAILY 02/03/17 [History] Citalopram Hydrobromide [Celexa] 40 mg PO DAILY 03/17/17 [History] Famotidine 40 mg PO DAILY 03/17/17 [History] [place]-3S/DHA/Epa/Fish Oil [Fish Oil [place]-3 Softgel] 4 tab PO BID 03/17/17 [ History] metFORMIN HCl [Metformin HCl] 2 tab PO BID 03/17/17 [History] Hydrochlorothiazide/Losartan [Hyzaar 50-12.5 MG] 1 tab PO DAILY 08/11/17 [ History] Atenolol 25 mg PO DAILY 07/08/18 [History] - CURRENT (IN HOUSE) MEDS Current Meds: Current Medications Famotidine (Pepcid) 40 mg IVPUSH ONARRIVE [facility] Last Admin: 07/12/18 09:00 Dose: 40 mg Acetaminophen 1,000 mg/ Premix 100 mls @ 400 mls/hr IV ONARRIVE [facility] Last Admin: 07/12/18 09:04 Dose: 400 mls/hr Cefazolin Sodium/Dextrose 2 gm (/ Premix) 50 mls @ 100 mls/hr IV ONCALL [facility] Ropivacaine 49.25 ml/Ketorolac Tromethamine 30 mg/Epinephrine HCl 0.5 mg/ Clonidine HCl 80 mcg/ Sodium Chloride 100 mls @ 50 mls/sec INJECT ASDIRECTED [facility] Lactated Ringer's (Ringers, Lactated) 1,000 mls @ 100 mls/hr IV ASDIRECTED [facility] Ketorolac Tromethamine (Toradol) 30 mg IVPUSH ONARRIVE [facility] Last Admin: 07/12/18 08:56 Dose: 30 mg Scopolamine (Transderm-Scop) 1.5 mg TRDERM ONARRIVE [facility] Last Admin: 07/12/18 09:07 Dose: 1.5 mg Discontinued Medications Fentanyl (Sublimaze) Confirm Administered Dose 100 mcg .ROUTE .STK-MED ONE Stop: 07/12/18 09:03 Fentanyl (Sublimaze) Confirm Administered Dose 100 mcg .ROUTE .STK-MED ONE Stop: 07/12/18 09:03 Tranexamic Acid 2,000 mg/ (Sodium Chloride) 120 mls @ 600 mls/hr IV ASDIRECTED ONE Stop: 07/12/18 08:11 Lidocaine (Xylocaine-Mpf 2%) Confirm Administered Dose 5 ml .ROUTE .STK-MED ONE Stop: 07/12/18 09:02 Midazolam HCl (Versed 1 Mg/Ml) Confirm Administered Dose 2 mg .ROUTE .STK-MED ONE Stop: 07/12/18 09:03 Ondansetron HCl (Zofran) Confirm Administered Dose 4 mg .ROUTE .STK-MED ONE Stop: 07/12/18 09:02 Propofol (Diprivan 20 Ml) Confirm Administered Dose 600 mg .ROUTE .STK-MED ONE Stop: 07/12/18 09:02 Tranexamic Acid (Cyklokapron) Confirm Administered Dose 2,000 mg .ROUTE .STK- MED ONE Stop: 07/12/18 08:59
[2018-07-12] MEDS ORDERED: ceFAZolin/Dextrose,Iso-Osmotic 2 GM/50 ML Duplex Bag IV ONE (10:05)
[2018-07-12] MEDS ORDERED: Atropine 0.4 MG/ML 20 ML MDV IVPUSH PRN (10:54)
[2018-07-12] MEDS ORDERED: Albuterol 0.083% 2.5 MG/3 ML Neb Soln NEB PRN (10:54)
[2018-07-12] MEDS ORDERED: 50% Dextrose in Water 50 ML Syringe IVPUSH PRN (10:54)
[2018-07-12] MEDS ORDERED: Naloxone 0.4 MG/ML Syringe IVPUSH PRN (10:54)
[2018-07-12] MEDS ORDERED: Atropine 0.4 MG/ML SDV IVPUSH PRN (10:54)
[2018-07-12] MEDS ORDERED: fentaNYL 100 MCG/2 ML SDV IVPUSH PRN (10:54)
[2018-07-12] MEDS ORDERED: EPINEPHrine 1 MG/ML 30 ML MDV IVPUSH ONE (10:54)
[2018-07-12] MEDS ORDERED: Phenylephrine/Normal Saline 100 MCG/ML 10 ML Syringe ONE (10:55)
[2018-07-12] MEDS ORDERED: Sodium Chloride 0.9% 10 ML Syringe FLUSH PRN (11:40)
[2018-07-12] MEDS ORDERED: Aluminum Hydroxide/Magnesium Hydroxide/Simethicone Susp 30 ML Cup PO PRN ×2 (11:40→11:58)
[2018-07-12] MEDS ORDERED: Ondansetron 4 MG/2 ML SDV IVPUSH PRN (11:40)
[2018-07-12] MEDS ORDERED: Bisacodyl 10 MG Supp RECTAL PRN ×3 (11:40→15:21)
[2018-07-12] MEDS ORDERED: Sodium Chloride 0.9% 2.5 ML Syringe FLUSH PRN (11:40)
[2018-07-12] MEDS ORDERED: diphenhydrAMINE 25 MG Cap PO PRN ×2 (11:40→11:58)
[2018-07-12] MEDS ORDERED: Morphine PF 30 MG/30 ML PCA Vial IV PRN (11:58)
--- NOTE | 2018-07-12 12:11 | PCM.OPNOTE ---
- General Post-Op/Procedure Note Date of Surgery/Procedure: 07/12/18 Operative Procedure(s): R TKA Post-Op Diagnosis: DJD R knee Anesthesia Technique: Moderate Sedation, Spinal Primary Surgeon: Jeannette Cason Sheet Metal Contractor: Quynh Delvalle Sheet Metal Contractor: Ellen Gandhi EBL in mLs: 50 Condition: Good Free Text/Narrative:: #[id number] tt=42 min
--- NOTE | 2018-07-12 12:58 | PCM.POSTAN ---
POST ANESTHESIA ASSESSMENT - MENTAL STATUS Mental Status: Alert, Oriented - VITAL SIGNS Pulse Rate: 70 SaO2: 95 Resp Rate: 13 Blood Pressure: 123/55 Temperature: 36.5 C - RESPIRATORY Respiratory Status: Respiratory Rate WNL, Airway Patent, O2 Saturation Stable - CARDIOVASCULAR CV Status: Pulse Rate WNL, Blood Pressure Stable - GASTROINTESTINAL GI Status: No Symptoms - PAIN Pain Score: 0 (spinal level aprox L3) Free Text/Narrative:: no pain, maybe slight nausea (pt unsure). - POST OP HYDRATION Hydration Status: Adequate & Stable - OBSERVATIONS Free Text/Narrative:: awake, alert, vitals stable. Not yet able to move legs (spinal anesthesia). Level approx L3. No pain, no nausea. Signed out of PACU Phase I at 1145 hrs.
--- NOTE | 2018-07-12 13:08 | OR ---
SURGEON: Jeannette Cason MD DATE OF PROCEDURE: 07/12/2018 PREOPERATIVE DIAGNOSIS: Degenerative joint disease, right knee, tricompartmental. POSTOPERATIVE DIAGNOSIS: Degenerative joint disease, right knee, tricompartmental. PROCEDURES: Right total knee arthroplasty using patient specific instrumentation. ASSISTANTS: Quynh Delvalle PA-C and ALICIA Blair ANESTHESIA: Spinal with sedation. ESTIMATED BLOOD LOSS: 50 mL. TOURNIQUET TIME: 42 minutes. COMPLICATIONS: None. DVT PROPHYLAXIS: PAS boot and BRIANDA hose to the nonoperative leg. IMPLANTS USED: Wayne Persona femoral component size 6 narrow (LPS), tibial component size D, 12 mm all-polyethylene articular surface, and 32 mm all-polyethylene patella. INTRAOPERATIVE FINDINGS: Showed severe tricompartmental degenerative changes with grade 4 chondromalacia. Osteophyte formation was also noted. No significant synovitis was found. BRIEF HISTORY: Molly is a 62-year-old female who has had complaint of progressive right knee pain. She had failed conservative treatment. She has previously undergone a left total knee arthroplasty and has done well. Due to her lack of response to conservative treatment, I did recommend surgical intervention. The risks and goals of the procedure were discussed with the patient and were documented preoperatively. She agreed to proceed. DESCRIPTION OF PROCEDURE: The patient was properly identified and brought to the operating room. The patient was then transferred from the operating room cart and placed on the operating table in a supine position. Anesthesia was administered by the anesthesia staff. After adequate anesthesia was obtained, a well-padded tourniquet was applied to the surgical lower extremity. Pettit catheter was placed. The lower extremity was then prepped in standard fashion using ChloraPrep solution. It was then sterilely draped. A time-out was performed to ensure correct site and procedure. Preoperative antibiotics were given along with one gram of tranexamic acid IV. The surgical site had been marked preoperatively. An Esmarch was used to exsanguinate the right lower extremity and the tourniquet was inflated. An incision was made over the anterior aspect of the knee. The subcutaneous tissues were dissected down to the level of the fascia. A medial parapatellar approach to the knee was made. A portion of the infrapatellar fat pad was then excised. The distal femur was then exposed. The femoral patient-specific cutting guide was then placed. Pins were also placed. The distal femoral cutting block was placed and the distal femoral cut was made. Instrumentation was then removed. Both Whitesides' line and the epicondylar axis were then marked with electrocautery. The 4-in-1 cutting block was placed. This was placed in a slightly externally rotated position, which corresponded well with the previously drawn lines. The cutting guide was then pinned into position. An Samy wing guide was used to check the depth of resection of our anterior condylar cut and it was felt that no notching would occur. The anterior condylar cut was then made followed by the posterior condylar cut. Both the posterior chamfer and anterior chamfer cuts were then made. The cutting block was then removed along with the excess bony remnants. We then turned our attention to the tibia. The anterior cruciate ligament and posterior cruciate ligament were released and a posterior cruciate ligament retractor was placed to allow the tibia to be pulled anteriorly. The tibial patient-specific guide was then placed on the proximal tibia. This fit anatomically. The pins were then placed. The proximal tibia cutting guide was then placed and screwed into position. The proximal tibial resection was then made with care being taken to protect the patellar tendon. The bony resection was then removed. The remainder of the medial and lateral meniscus were then excised. Care was taken to protect the popliteus tendon. The tibia was then sized to the appropriate size. The distal femur was then elevated. The posterior capsule was stripped off the distal femur both medially and laterally. The posterior capsule along with the medial and lateral gutters were then injected with a standard mixture consisting of clonidine, epinephrine, Toradol, and Ropivacaine, unless any allergies were found preoperatively. The femoral component was then placed onto the distal femur in a slightly lateral position. This fit the femur well. A box cut was then made without difficulty. This was then removed. The tibial trial along with the polyethylene liner was then placed. The knee came easily into full extension and was stable to varus and valgus stressing both in full extension and flexion. Any additional releases were performed at this time. We then returned our attention to the patella. The patella was everted and towel clamps were used to hold the patella in position. It was resected to a 15 millimeter thickness. It was then sized to the appropriate size. It was prepared in the usual fashion after placing the predetermined size clamps. This was placed in a slightly superior and medial position. The clamp was then removed. The patellar trial button was placed. The knee was taken through a range of motion using the no-touch technique. The patella tracked centrally. A drop kelsy was then placed to check alignment. All instruments were then removed from the knee. The tibial sizer was then placed on the tibia. The tibia was prepared in the usual fashion using the reamer and broach. This was then removed. All bony surfaces were copiously irrigated with Pulsavac solution. They were then suctioned dry. Cement was prepared on the back table in the usual manner. Once it was prepared, the bone ends were again suctioned dry. The tibia was cemented into place first. This was malleted into position. Excess cement was then cleared. The femur was then placed in a similar manner. We placed the polyethylene trial into place and the knee was brought into full extension. An axial load was placed while keeping the knee in full extension. The patella button was also cemented into position and the clamp was used to hold this in place as the cement was allowed to cure. The wound was again copiously irrigated with saline solution using a Pulsavac collar packer. Following this 1 g of tranexamic acid was applied to the wound topically. After we had adequate curing of the cement, the knee was again taken through a range of motion. The size of the polyethylene was then determined. The polyethylene trial was then removed. The tibial tray was suctioned to make sure there was no remaining soft tissue or cement. Excess cement was cleared from around the edges of the prosthesis as well. The tourniquet was then deflated. We were able to observe for any excess bleeding and none was noted. Electrocautery was used to maintain hemostasis. An additional gram of tranexamic acid was given IV. The retractors were again placed and the predetermined polyethylene was then placed. This was locked into position without difficulty. The knee was again taken through a range of motion with no change from the prior exam. The fascial layer was closed with Number One Vicryl. The subcutaneous tissues were closed with 2-0 Vicryl. The skin was closed with trevor. Xeroform gauze was placed over the wound and a bulky dressing was applied. The patient was then awakened from anesthesia and transferred back to the operating room cart. They were brought to the recovery room in stable condition. All needle and sponge counts were correct. SIGIFREDO / SONU /[id number]
--- NOTE | 2018-07-12 13:10 | PCM.CONS ---
H&P History of Present Illness - General Date of Service: 07/12/18 Admit Problem/Dx: Admission Diagnosis/Problem Admission Diagnosis/Problem Replacement of total knee joint Source of Information: Patient History Limitations: Reports: No Limitations - History of Present Illness Onset of Symptoms: Reports: Gradual - Related Data Allergies/Adverse Reactions: Allergies Allergy/AdvReac Type Severity Reaction Status Date / Time NÉSTOR Inhibitors Allergy Nausea and Verified 07/08/18 09:24 Vomiting codeine Allergy Vomiting Verified 07/08/18 09:24 tramadol Allergy Vomiting Verified 07/08/18 09:24 Angiotensin Allergy Vomiting Uncoded 02/03/17 00:22 PET DANDER Allergy Sneezing Uncoded 02/03/17 00:22 Home Medications: Home Meds Simvastatin [Zocor] 20 mg PO BEDTIME 12/29/13 [History] Niacinamide 1 tab PO BEDTIME 03/26/15 [History] Aspirin 81 mg PO DAILY 02/03/17 [History] Citalopram Hydrobromide [Celexa] 40 mg PO DAILY 03/17/17 [History] Famotidine 40 mg PO DAILY 03/17/17 [History] [place]-3S/DHA/Epa/Fish Oil [Fish Oil [place]-3 Softgel] 4 tab PO BID 03/17/17 [ History] metFORMIN HCl [Metformin HCl] 2 tab PO BID 03/17/17 [History] Hydrochlorothiazide/Losartan [Hyzaar 50-12.5 MG] 1 tab PO DAILY 08/11/17 [ History] Atenolol 25 mg PO DAILY 07/08/18 [History] Past Medical History HEENT History: Reports: Allergic Rhinitis, Other (See Below) Other HEENT History: wears glasses, has upper front dental implant Cardiovascular History: Reports: High Cholesterol, Hypertension Respiratory History: Reports: Sleep Apnea Other Respiratory History: Sleep apnea uses CPAP Gastrointestinal History: Reports: Colon Polyp, Diverticulosis, GERD, Hemorrhoids Genitourinary History: Reports: UTI, Recurrent 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: Reports: Endometrial Ablation, Musculoskeletal History: Reports: Arthritis Neurological History: Reports: Neuropathy, Peripheral Psychiatric History: Reports: Anxiety, Depression Endocrine/Metabolic History: Reports: Diabetes, Type II, Obesity/BMI 30+ Hematologic History: Reports: None Immunologic History: Reports: None Oncologic (Cancer) History: Reports: None Dermatologic History: Reports: None - Infectious Disease History Infectious Disease History: Reports: None - Past Surgical History Head Surgeries/Procedures: Reports: None GI Surgical History: Reports: Colonoscopy Female Surgical History: Reports: Cystoscopy, Endometrial Ablation, Tubal Ligation, Other (See Below) Other Female Surgeries/Procedures: Hysteroscopy with Uterine ablation Musculoskeletal Surgical History: Reports: Arthroscopic Knee, Carpal Tunnel, Knee Replacement Other Musculoskeletal Surgeries/Procedures:: Left and Right Knee arthrosocopies , Left Total Knee Replacment 4 years ago. , surgery to paolo thumbs, [facility] Social & Family History - Family History Family Medical History: Noncontributory - Tobacco Use Smoking Status *Q: Never Smoker - Caffeine Use Caffeine Use: Reports: Coffee, Soda, Tea - Recreational Drug Use Recreational Drug Use: No - Living Situation & Occupation Living situation: Reports: , with Significant Other Occupation: Retired H&P Review of Systems - Review of Systems: Review Of Systems: See Below General: Reports: No Symptoms HEENT: Reports: No Symptoms Pulmonary: Reports: No Symptoms Cardiovascular: Reports: No Symptoms Gastrointestinal: Reports: No Symptoms Genitourinary: Reports: No Symptoms Musculoskeletal: Reports: Leg Pain Skin: Reports: No Symptoms Psychiatric: Reports: No Symptoms Neurological: Reports: No Symptoms Hematologic/Lymphatic: Reports: No Symptoms Immunologic: Reports: No Symptoms Exam - Exam Exam: See Below - Vital Signs Vital Signs: Last Vital Signs Temp 36.5 C 07/12/18 12:58 Pulse 70 07/12/18 12:58 Resp 13 07/12/18 12:58 BP 123/55 L 07/12/18 12:58 Pulse Ox 95 07/12/18 12:58 Weight: 90.718 kg - Exam Quality Assessment: No: Supplemental Oxygen General: Alert, Oriented, Lethargic HEENT: Conjunctiva Clear, EACs Clear, EOMI, Mucosa Moist & Anton Ruiz, Pupils Equal, Pupils Reactive Neck: Supple, Trachea Midline Lungs: Clear to Auscultation, Normal Respiratory Effort Cardiovascular: Regular Rate, Regular Rhythm GI/Abdominal Exam: Normal Bowel Sounds, No Distention (Female) Exam: Deferred Rectal (Female) Exam: Deferred Back Exam: Normal Inspection, Full Range of Motion Extremities: No: Normal Range of Motion (Postoperative day 0) Skin: Warm, Dry, Intact Neurological: Cranial Nerves Intact Neuro Extensive - Mental Status: Alert, Oriented x3 Psychiatric: Alert, Normal Affect - Patient Data Lab Results Last 24 hrs: Laboratory Results - last 24 hr 07/12/18 Range/Units 08:53 Blood Type B POSITIVE Antibody Screen NEGATIVE Consult PN Assessment/Plan POD#: 0 Procedures: Procedures BX BREAST 1ST LESION US IMAG (03/12/16) COLONOSCOPY AND BIOPSY (03/19/17) COMPLETE CBC W/AUTO DIFF WBC (02/03/17) COMPREHEN METABOLIC PANEL (02/03/17) CT ABD & PELV W/CONTRAST (02/03/17) EMERGENCY DEPT VISIT (02/03/17) EMERGENCY DEPT VISIT (07/13/14) FLUOROSCOPY <1 HR PHYS/QHP (08/14/17) GLUCOSE BLOOD TEST (03/19/17) GLYCOSYLATED HEMOGLOBIN TEST (04/13/18) HOT OR COLD PACKS THERAPY (06/25/15) MANUAL THERAPY 1/> REGIONS (10/30/17) METABOLIC PANEL TOTAL CA (05/07/15) MRI JNT OF LWR EXTRE W/O DYE (05/21/18) ORTHOTIC MGMT&TRAINJ 1ST ENC (09/01/17) OT EVAL LOW COMPLEX 30 MIN (10/30/17) OT EVALUATION (06/07/15) OT RE-EVAL EST PLAN CARE (12/02/17) PROTHROMBIN TIME (02/03/17) PT EVALUATION (02/03/14) RANGE OF MOTION MEASUREMENTS (06/25/15) RANGE OF MOTION MEASUREMENTS (06/25/15) REPAIR WRIST JOINTS (08/14/17) ROUTINE VENIPUNCTURE (04/13/18) THER/PROPH/DIAG INJ IV PUSH (02/03/17) THERAPEUTIC ACTIVITIES (06/25/15) THERAPEUTIC EXERCISES (12/02/17) TISSUE EXAM BY PATHOLOGIST (03/19/17) TRANSPLANT FOREARM TENDON (03/28/15) TRANSPLANT HAND TENDON (08/14/17) URINALYSIS AUTO W/SCOPE (02/03/17) URINE CULTURE/COLONY COUNT (02/03/17) VASOPNEUMATIC DEVICE THERAPY (02/03/14) X-RAY EXAM HIP UNI 2-3 VIEWS (02/11/18) X-RAY EXAM KNEE 4 OR MORE (02/11/18) X-RAY EXAM OF HAND (10/31/14) X-RAY EXAM OF KNEE 3 (10/31/14) (1) Status post right knee replacement SNOMED Code(s): 188856537, 476148111, 531182005 Code(s): Z96.651 - PRESENCE OF RIGHT ARTIFICIAL KNEE JOINT Priority: High Current Visit: Yes (2) Diabetes mellitus type 2 in obese SNOMED Code(s): 05350274 Code(s): E11.69 - TYPE 2 DIABETES MELLITUS WITH OTHER SPECIFIED COMPLICATION ; E66.9 - OBESITY, UNSPECIFIED Priority: High Current Visit: Yes (3) Hypertension SNOMED Code(s): 12647721 Code(s): I10 - ESSENTIAL (PRIMARY) HYPERTENSION Priority: High Current Visit: Yes Qualifiers: Hypertension type: essential hypertension Qualified Code(s): I10 - Essential (primary) hypertension Problem List Initiated/Reviewed/Updated: Yes Plan: The patient is a 62-year-old lady who is currently postop day 0 for right total knee arthroplasty and she is still lethargic from anesthesia. The patient is non -insulin-dependent type 2 diabetic. Her oral antidiabetic medications of been held for the short run. She'll be kept on insulin sliding scale. Also she'll be kept on the medium dose sliding scale. Accu-Cheks before meals and at bedtime for her. The patient will also be kept on telemetry to track her blood pressure and medications will be adjusted as necessary. The patient is to continue physical therapy as outlined by orthopedic surgeon. Will follow. I like to thank Dr. Jeannette Cason for participation and care per patient. Requesting Provider: Dr. Jeannette Cason Date Consult Requested: 07/12/18 Reason for Consult: Medical management Patient History Reviewed: Yes Admission H&P Reviewed: Yes Notified Requestor: Yes
[2018-07-12] MEDS ORDERED: oxyCODONE 5 MG Tab PO PRN (14:03)
[2018-07-12] MEDS: Acetaminophen 1,000 MG in Premix Bag 1 BAG IV SCH ×2 (16:05→21:13)
[2018-07-12] MEDS ORDERED: Acetaminophen 1,000 MG in Premix Bag 1 BAG IV SCH (17:00)
--- NOTE | 2018-07-12 17:02 | CR ---
EXAMINATION: Right knee HISTORY: Arthroplasty COMPARISON: 02/11/2018 TECHNIQUE: 2 views FINDINGS/IMPRESSION: Right total knee hardware is demonstrated in good position and alignment. Postoperative soft tissue changes noted.
[2018-07-12] MEDS: Ketorolac 30 MG/ML SDV IVPUSH SCH ×2 (18:02→23:55)
[2018-07-12] MEDS: ceFAZolin 2 GM in Premix Bag 1 BAG IV SCH (18:02)
[2018-07-12] MEDS ORDERED: Docusate Sodium 100 MG Cap PO PRN (21:00)
[2018-07-12] MEDS: Docusate Sodium 100 MG Cap PO PRN (21:13)
[2018-07-12] MEDS: Simvastatin 20 MG Tab PO SCH (21:14)
[2018-07-12] MEDS: NIACINAMIDE 100 MG PO SCH (21:15)
[2018-07-12] MEDS: Fish Oil/Omega-3 Fatty Acids 1 Gm Cap PO SCH (21:15)
[2018-07-12] MEDS: Insulin Aspart 100 Units/ML 3 ML Pen SUBCUT SCH (21:19)
[2018-07-13] MEDS: Lactated Ringers 1,000 ML IV SCH (01:31)
[2018-07-13] MEDS: ceFAZolin 2 GM in Premix Bag 1 BAG IV SCH (01:31)
[2018-07-13] MEDS: Acetaminophen 1,000 MG in Premix Bag 1 BAG IV SCH (03:09)
[2018-07-13 05:40] LABS: CHLORIDE,CL 105 mmol/L (98-107); SODIUM,NA 140 mmol/L (136-145)
[2018-07-13] MEDS ORDERED: Acetaminophen/oxyCODONE 325-5 MG Tab PO PRN (06:00)
[2018-07-13] MEDS ORDERED: Morphine 2 MG/ML Syringe IVPUSH PRN (06:00)
[2018-07-13] MEDS: Insulin Aspart 100 Units/ML 3 ML Pen SUBCUT SCH ×2 (07:55→20:29)
--- NOTE | 2018-07-13 08:16 | PCM.CONSN ---
<Ellie Franz M - Last Filed: 07/13/18 09:31> - General Info Date of Service: 07/13/18 Admission Dx/Problem (Free Text): Admission Diagnosis/Problem Admission Diagnosis/Problem Replacement of total knee joint Subjective Update: Sitting up in the chair. Reports pain is well controlled. No chest pain or SOB. No other concerns. Educated as to why we are holding Metformin, verbalized understanding. Functional Status: Reports: Pain Controlled, Tolerating Diet, Ambulating, Urinating - Review of Systems General: Reports: No Symptoms. Denies: Weakness, Fatigue HEENT: Reports: No Symptoms. Denies: Headaches, Sore Throat, Visual Changes Pulmonary: Reports: No Symptoms. Denies: Shortness of Breath Cardiovascular: Reports: No Symptoms. Denies: Chest Pain Gastrointestinal: Reports: No Symptoms. Denies: Abdominal Pain, Nausea, Vomiting Genitourinary: Reports: No Symptoms. Denies: Dysuria, Frequency, Burning Musculoskeletal: Reports: No Symptoms Skin: Reports: No Symptoms Neurological: Reports: No Symptoms Psychiatric: Reports: No Symptoms - Patient Data Vitals - Most Recent: Last Vital Signs Temp 96.8 F 07/13/18 07:57 Pulse 62 07/13/18 07:57 Resp 14 07/13/18 07:57 BP 152/69 H 07/13/18 07:57 Pulse Ox 95 07/13/18 07:57 Weight - Most Recent: 90.718 kg I&O - Last 24 Hours: Intake & Output 07/12/18 07/13/18 07/13/18 22:59 06:59 14:59 Intake Total 800 2664 Output Total 900 1975 Balance -100 689 Lab Results Last 24 Hours: Laboratory Results - last 24 hr 07/12/18 07/12/18 07/13/18 Range/Units 08:53 16:00 04:45 Hgb 11.1 L (12.0-16.0) g/dL Hct 32.8 L (36.0-46.0) % Sodium (136-145) mmol/L Potassium (3.5-5.1) mmol/L Chloride (98-107) mmol/L Carbon Dioxide (21.0-32.0) mmol/L BUN (7.0-18.0) mg/dL Creatinine (0.6-1.0) mg/dL Est Cr Clr Drug Dosing mL/min Estimated GFR (MDRD) ml/min Glucose (74-106) mg/dL POC Glucose 83 (60-110) mg/dL Calcium (8.5-10.1) mg/dL Blood Type B POSITIVE Antibody Screen NEGATIVE 07/13/18 Range/Units 04:45 Hgb (12.0-16.0) g/dL Hct (36.0-46.0) % Sodium 140 (136-145) mmol/L Potassium 4.2 (3.5-5.1) mmol/L Chloride 105 (98-107) mmol/L Carbon Dioxide 28.1 (21.0-32.0) mmol/L BUN 17 (7.0-18.0) mg/dL Creatinine 0.9 (0.6-1.0) mg/dL Est Cr Clr Drug Dosing 59.89 mL/min Estimated GFR (MDRD) > 60.0 ml/min Glucose 103 (74-106) mg/dL POC Glucose (60-110) mg/dL Calcium 8.7 (8.5-10.1) mg/dL Blood Type Antibody Screen Med Orders - Current: Current Medications Aspirin (Aspirin) 81 mg PO DAILY [facility] Atenolol (Tenormin) 25 mg PO DAILY [facility] Bisacodyl (Dulcolax) 10 mg RECTAL DAILY PRN PRN Reason: Constipation Celecoxib (Celebrex) 200 mg PO BID [facility] Citalopram Hydrobromide (Celexa) 40 mg PO DAILY [facility] Diphenhydramine HCl (Benadryl) 25 - 50 mg PO Q6H PRN PRN Reason: Itching Last Admin: 07/12/18 15:05 Dose: 50 mg Docusate Sodium (Colace) 100 mg PO BID PRN PRN Reason: Constipation Last Admin: 07/12/18 21:13 Dose: 100 mg Famotidine (Pepcid) 40 mg PO DAILY [facility] HCTZ/Losartan Potassium (Hyzaar 50-12.5 Mg) 1 tab PO DAILY [facility] Lactated Ringer's (Ringers, Lactated) 1,000 mls @ 100 mls/hr IV ASDIRECTED [facility] Last Admin: 07/13/18 01:31 Dose: 100 mls/hr Insulin Aspart (Novolog) 0 unit SUBCUT ACBREAKFASTANDBED [facility]; Protocol Last Admin: 07/13/18 07:55 Dose: Not Given Morphine Sulfate (Morphine) 1 - 3 mg IVPUSH Q3H PRN PRN Reason: Pain Ondansetron HCl (Zofran) 4 mg IVPUSH Q6H PRN PRN Reason: Nausea/Vomiting Oxycodone/Acetaminophen (Percocet 325-5 Mg) 1 - 2 tab PO Q4H PRN PRN Reason: Pain Niacinamide 100 Mg 1 each PO BEDTIME [facility] Last Admin: 07/12/18 21:15 Dose: 1 each Fish Oil/Acworth-3 (Fatty Acids 1 Gm Cap) 4 each PO BID [facility] Last Admin: 07/12/18 21:15 Dose: 4 each Polyethylene Glycol (Miralax) 17 gm PO DAILY [facility] Simvastatin (Zocor) 20 mg PO BEDTIME [facility] Last Admin: 07/12/18 21:14 Dose: 20 mg Sodium Chloride (Saline Flush) 10 ml FLUSH ASDIRECTED PRN PRN Reason: Keep Vein Open Sodium Chloride (Saline Flush) 2.5 ml FLUSH ASDIRECTED PRN PRN Reason: Keep Vein Open Discontinued Medications Al Hydroxide/Mg Hydroxide (Mag-Al Plus) 30 ml PO Q4H PRN PRN Reason: Indigestion Al Hydroxide/Mg Hydroxide (Mag-Al Plus) 30 ml PO Q4H PRN PRN Reason: Indigestion Albuterol (Proventil Neb Soln) 2.5 mg NEB ONETIME PRN PRN Reason: Wheezing Aspirin (Aspirin) 325 mg PO BID [facility] Atropine Sulfate (Atropine) 1 mg IVPUSH ASDIRECTED PRN PRN Reason: ACLS Guidelines Atropine Sulfate (Atropine) 0.5 mg IVPUSH ASDIRECTED PRN PRN Reason: Hypo-Perfusion Bisacodyl (Dulcolax) 10 mg RECTAL DAILY PRN PRN Reason: Constipation Bisacodyl (Dulcolax) 10 mg RECTAL DAILY PRN PRN Reason: Constipation Cefazolin Sodium/Dextrose (Ancef) Confirm Administered Dose 2 gm IV .STK-MED ONE Stop: 07/12/18 10:06 Dextrose/Water (Dextrose 50% In Water) 50 ml IVPUSH ASDIRECTED PRN PRN Reason: Hypoglycemia Epinephrine HCl (Adrenalin) 1 mg IVPUSH NOW ONE Stop: 07/12/18 10:55 Last Admin: 07/12/18 21:12 Dose: Not Given Famotidine (Pepcid) 40 mg IVPUSH ONARRIVE [facility] Last Admin: 07/12/18 09:00 Dose: 40 mg Fentanyl (Sublimaze) Confirm Administered Dose 100 mcg .ROUTE .STK-MED ONE Stop: 07/12/18 09:03 Fentanyl (Sublimaze) Confirm Administered Dose 100 mcg .ROUTE .STK-MED ONE Stop: 07/12/18 09:03 Fentanyl (Sublimaze) 50 - 100 mcg IVPUSH Q5M PRN PRN Reason: Pain Acetaminophen 1,000 mg/ Premix 100 mls @ 400 mls/hr IV ONARRIVE [facility] Last Admin: 07/12/18 09:04 Dose: 400 mls/hr Cefazolin Sodium/Dextrose 2 gm (/ Premix) 50 mls @ 100 mls/hr IV ONCALL [facility] Ropivacaine 49.25 ml/Ketorolac Tromethamine 30 mg/Epinephrine HCl 0.5 mg/ Clonidine HCl 80 mcg/ Sodium Chloride 100 mls @ 50 mls/sec INJECT ASDIRECTED [facility] Tranexamic Acid 2,000 mg/ (Sodium Chloride) 120 mls @ 600 mls/hr IV ASDIRECTED ONE Stop: 07/12/18 08:11 Last Admin: 07/12/18 21:12 Dose: Not Given Acetaminophen 1,000 mg/ Premix 100 mls @ 400 mls/hr IV Q6H [facility] Stop: 07/13/18 05:14 Cefazolin Sodium/Dextrose 2 gm (/ Premix) 50 mls @ 100 mls/hr IV Q8H [facility] Stop: 07/13/18 02:29 Last Admin: 07/13/18 01:31 Dose: 100 mls/hr Acetaminophen 1,000 mg/ Premix 100 mls @ 400 mls/hr IV Q6H [facility] Stop: 07/13/18 03:44 Last Admin: 07/13/18 03:09 Dose: 400 mls/hr Ketorolac Tromethamine (Toradol) 30 mg IVPUSH ONARRIVE [facility] Last Admin: 07/12/18 08:56 Dose: 30 mg Ketorolac Tromethamine (Toradol) 30 mg IVPUSH Q6H [facility] Stop: 07/13/18 05:00 Last Admin: 07/12/18 23:55 Dose: 30 mg Lidocaine (Xylocaine-Mpf 2%) Confirm Administered Dose 5 ml .ROUTE .STK-MED ONE Stop: 07/12/18 09:02 Midazolam HCl (Versed 1 Mg/Ml) Confirm Administered Dose 2 mg .ROUTE .STK-MED ONE Stop: 07/12/18 09:03 Morphine Sulfate (Morphine Tile Designer 30 Mg In 30 Ml) 30 mg IV ASDIRECTED PRN; Protocol PRN Reason: Pain Stop: 07/13/18 06:00 Last Admin: 07/12/18 12:30 Dose: 30 mg Ondansetron HCl (Zofran) Confirm Administered Dose 4 mg .ROUTE .STK-MED ONE Stop: 07/12/18 09:02 Oxycodone HCl (Oxycodone) 5 - 10 mg PO Q4H PRN PRN Reason: Pain Last Admin: 07/12/18 21:13 Dose: 10 mg Oxycodone/Acetaminophen (Percocet 325-5 Mg) 1 - 2 tab PO Q4H PRN PRN Reason: Pain Phenylephrine HCl (Phenylephrine In Ns 100 Mcg/Ml) Confirm Administered Dose 1 mg .ROUTE .STK-MED ONE Stop: 07/12/18 10:56 Polyethylene Glycol (Miralax) 17 gm PO DAILY [facility] Propofol (Diprivan 20 Ml) Confirm Administered Dose 600 mg .ROUTE .STK-MED ONE Stop: 07/12/18 09:02 Scopolamine (Transderm-Scop) 1.5 mg TRDERM ONARRIVE [facility] Last Admin: 07/12/18 09:07 Dose: 1.5 mg Tranexamic Acid (Cyklokapron) Confirm Administered Dose 2,000 mg .ROUTE .STK- MED ONE Stop: 07/12/18 08:59 - Exam General: Alert, Oriented, Cooperative, No Acute Distress Lungs: Clear to Auscultation, Normal Respiratory Effort Cardiovascular: Regular Rate, Regular Rhythm GI/Abdominal Exam: Normal Bowel Sounds, Soft, Non-Tender Back Exam: Normal Inspection, Full Range of Motion Extremities: Normal Inspection, Normal Range of Motion, Non-Tender, Pedal Edema (scant to R leg) Neurological: No New Focal Deficit Psy/Mental Status: Alert, Normal Affect, Normal Mood Consult PN Assessment/Plan Procedures: Procedures BX BREAST 1ST LESION US IMAG (03/12/16) COLONOSCOPY AND BIOPSY (03/19/17) COMPLETE CBC W/AUTO DIFF WBC (02/03/17) COMPREHEN METABOLIC PANEL (02/03/17) CT ABD & PELV W/CONTRAST (02/03/17) EMERGENCY DEPT VISIT (02/03/17) EMERGENCY DEPT VISIT (07/13/14) FLUOROSCOPY <1 HR PHYS/QHP (08/14/17) GLUCOSE BLOOD TEST (03/19/17) GLYCOSYLATED HEMOGLOBIN TEST (04/13/18) HOT OR COLD PACKS THERAPY (06/25/15) MANUAL THERAPY 1/> REGIONS (10/30/17) METABOLIC PANEL TOTAL CA (05/07/15) MRI JNT OF LWR EXTRE W/O DYE (05/21/18) ORTHOTIC MGMT&TRAINJ 1ST ENC (09/01/17) OT EVAL LOW COMPLEX 30 MIN (10/30/17) OT EVALUATION (06/07/15) OT RE-EVAL EST PLAN CARE (12/02/17) PROTHROMBIN TIME (02/03/17) PT EVALUATION (02/03/14) RANGE OF MOTION MEASUREMENTS (06/25/15) RANGE OF MOTION MEASUREMENTS (06/25/15) REPAIR WRIST JOINTS (08/14/17) ROUTINE VENIPUNCTURE (04/13/18) THER/PROPH/DIAG INJ IV PUSH (02/03/17) THERAPEUTIC ACTIVITIES (06/25/15) THERAPEUTIC EXERCISES (12/02/17) TISSUE EXAM BY PATHOLOGIST (03/19/17) TRANSPLANT FOREARM TENDON (03/28/15) TRANSPLANT HAND TENDON (08/14/17) URINALYSIS AUTO W/SCOPE (02/03/17) URINE CULTURE/COLONY COUNT (02/03/17) VASOPNEUMATIC DEVICE THERAPY (02/03/14) X-RAY EXAM HIP UNI 2-3 VIEWS (02/11/18) X-RAY EXAM KNEE 4 OR MORE (02/11/18) X-RAY EXAM OF HAND (10/31/14) X-RAY EXAM OF KNEE 3 (10/31/14) (1) Status post right knee replacement SNOMED Code(s): 626919385, 600435151, 931896548 Code(s): Z96.651 - PRESENCE OF RIGHT ARTIFICIAL KNEE JOINT Priority: High Current Visit: Yes (2) Diabetes mellitus type 2 in obese SNOMED Code(s): 94048708 Code(s): E11.69 - TYPE 2 DIABETES MELLITUS WITH OTHER SPECIFIED COMPLICATION ; E66.9 - OBESITY, UNSPECIFIED Priority: High Current Visit: Yes (3) Hypertension SNOMED Code(s): 05305220 Code(s): I10 - ESSENTIAL (PRIMARY) HYPERTENSION Priority: High Current Visit: Yes Qualifiers: Hypertension type: essential hypertension Qualified Code(s): I10 - Essential (primary) hypertension Problem List Initiated/Reviewed/Updated: Yes Plan: This 62 year old female admitted for R TKA with Dr Cason. Hospitalist service consulted for medical management 1. S/P R TKA: Per Dr Cason 2. DM Type 2: BS stable. Continue Novolog SSI. Holding Metformin post- operatively, again educated on why we are holding this. Verbalized understanding. 3. HTN: Stable. Continue Atenolol, Losartan/HCTZ. VTE prophylaxis: Recommended when deemed appropriate by Orthopedics. <Elkin Milligan - Last Filed: 07/13/18 16:00> - General Info Admission Dx/Problem (Free Text): I have seen and examined the patient independently of Ellie Franz CNP. I agree with the assessment and plan of care as outlined for this patient by the Ellie Franz. Please see orders. - Patient Data Vitals - Most Recent: Last Vital Signs Temp 35.9 C 07/13/18 11:41 Pulse 66 07/13/18 11:41 Resp 20 07/13/18 11:41 BP 139/62 07/13/18 11:41 Pulse Ox 97 07/13/18 11:41 I&O - Last 24 Hours: Intake & Output 07/13/18 07/13/18 07/13/18 06:59 14:59 22:59 Intake Total 2664 Output Total 1975 Balance 689 Lab Results Last 24 Hours: Laboratory Results - last 24 hr 07/12/18 07/13/18 07/13/18 Range/Units 16:00 04:45 04:45 Hgb 11.1 L (12.0-16.0) g/dL Hct 32.8 L (36.0-46.0) % Sodium 140 (136-145) mmol/L Potassium 4.2 (3.5-5.1) mmol/L Chloride 105 (98-107) mmol/L Carbon Dioxide 28.1 (21.0-32.0) mmol/L BUN 17 (7.0-18.0) mg/dL Creatinine 0.9 (0.6-1.0) mg/dL Est Cr Clr Drug Dosing 59.89 mL/min Estimated GFR (MDRD) > 60.0 ml/min Glucose 103 (74-106) mg/dL POC Glucose 83 (60-110) mg/dL Calcium 8.7 (8.5-10.1) mg/dL 07/13/18 Range/Units 11:36 Hgb (12.0-16.0) g/dL Hct (36.0-46.0) % Sodium (136-145) mmol/L Potassium (3.5-5.1) mmol/L Chloride (98-107) mmol/L Carbon Dioxide (21.0-32.0) mmol/L BUN (7.0-18.0) mg/dL Creatinine (0.6-1.0) mg/dL Est Cr Clr Drug Dosing mL/min Estimated GFR (MDRD) ml/min Glucose (74-106) mg/dL POC Glucose 105 (60-110) mg/dL Calcium (8.5-10.1) mg/dL Med Orders - Current: Current Medications Aspirin (Aspirin) 81 mg PO DAILY [facility] Last Admin: 07/13/18 08:33 Dose: 81 mg Atenolol (Tenormin) 25 mg PO DAILY [facility] Last Admin: 07/13/18 08:33 Dose: 25 mg Bisacodyl (Dulcolax) 10 mg RECTAL DAILY PRN PRN Reason: Constipation Celecoxib (Celebrex) 200 mg PO BID [facility] Last Admin: 07/13/18 08:32 Dose: 200 mg Citalopram Hydrobromide (Celexa) 40 mg PO DAILY [facility] Last Admin: 07/13/18 08:32 Dose: 40 mg Diphenhydramine HCl (Benadryl) 25 - 50 mg PO Q6H PRN PRN Reason: Itching Last Admin: 07/12/18 15:05 Dose: 50 mg Docusate Sodium (Colace) 100 mg PO BID PRN PRN Reason: Constipation Last Admin: 07/12/18 21:13 Dose: 100 mg Famotidine (Pepcid) 40 mg PO DAILY [facility] Last Admin: 07/13/18 08:33 Dose: 40 mg HCTZ/Losartan Potassium (Hyzaar 50-12.5 Mg) 1 tab PO DAILY [facility] Last Admin: 07/13/18 08:33 Dose: 1 tab Lactated Ringer's (Ringers, Lactated) 1,000 mls @ 100 mls/hr IV ASDIRECTED [facility] Last Admin: 07/13/18 01:31 Dose: 100 mls/hr Insulin Aspart (Novolog) 0 unit SUBCUT ACBREAKFASTANDBED [facility]; Protocol Last Admin: 07/13/18 07:55 Dose: Not Given Morphine Sulfate (Morphine) 1 - 3 mg IVPUSH Q3H PRN PRN Reason: Pain Multivitamins/Minerals (Thera M Plus) 1 tab PO DAILY [facility] Last Admin: 07/13/18 09:25 Dose: 1 tab Ondansetron HCl (Zofran) 4 mg IVPUSH Q6H PRN PRN Reason: Nausea/Vomiting Last Admin: 07/13/18 13:31 Dose: 4 mg Oxycodone/Acetaminophen (Percocet 325-5 Mg) 1 - 2 tab PO Q4H PRN PRN Reason: Pain Last Admin: 07/13/18 12:23 Dose: 2 tab Niacinamide 100 Mg 1 each PO BEDTIME [facility] Last Admin: 07/12/18 21:15 Dose: 1 each Fish Oil/Acworth-3 (Fatty Acids 1 Gm Cap) 4 each PO BID [facility] Last Admin: 07/13/18 08:33 Dose: 4 each Glucosamine & (Chondroitin) 1 each PO DAILY [facility] Last Admin: 07/13/18 09:25 Dose: 1 each Polyethylene Glycol (Miralax) 17 gm PO DAILY [facility] Last Admin: 07/13/18 08:33 Dose: 17 gm Simvastatin (Zocor) 20 mg PO BEDTIME [facility] Last Admin: 07/12/18 21:14 Dose: 20 mg Sodium Chloride (Saline Flush) 10 ml FLUSH ASDIRECTED PRN PRN Reason: Keep Vein Open Sodium Chloride (Saline Flush) 2.5 ml FLUSH ASDIRECTED PRN PRN Reason: Keep Vein Open Discontinued Medications Al Hydroxide/Mg Hydroxide (Mag-Al Plus) 30 ml PO Q4H PRN PRN Reason: Indigestion Al Hydroxide/Mg Hydroxide (Mag-Al Plus) 30 ml PO Q4H PRN PRN Reason: Indigestion Albuterol (Proventil Neb Soln) 2.5 mg NEB ONETIME PRN PRN Reason: Wheezing Aspirin (Aspirin) 325 mg PO BID [facility] Atropine Sulfate (Atropine) 1 mg IVPUSH ASDIRECTED PRN PRN Reason: ACLS Guidelines Atropine Sulfate (Atropine) 0.5 mg IVPUSH ASDIRECTED PRN PRN Reason: Hypo-Perfusion Bisacodyl (Dulcolax) 10 mg RECTAL DAILY PRN PRN Reason: Constipation Bisacodyl (Dulcolax) 10 mg RECTAL DAILY PRN PRN Reason: Constipation Cefazolin Sodium/Dextrose (Ancef) Confirm Administered Dose 2 gm IV .STK-MED ONE Stop: 07/12/18 10:06 Dextrose/Water (Dextrose 50% In Water) 50 ml IVPUSH ASDIRECTED PRN PRN Reason: Hypoglycemia Epinephrine HCl (Adrenalin) 1 mg IVPUSH NOW ONE Stop: 07/12/18 10:55 Last Admin: 07/12/18 21:12 Dose: Not Given Famotidine (Pepcid) 40 mg IVPUSH ONARRIVE [facility] Last Admin: 07/12/18 09:00 Dose: 40 mg Fentanyl (Sublimaze) Confirm Administered Dose 100 mcg .ROUTE .STK-MED ONE Stop: 07/12/18 09:03 Fentanyl (Sublimaze) Confirm Administered Dose 100 mcg .ROUTE .STK-MED ONE Stop: 07/12/18 09:03 Fentanyl (Sublimaze) 50 - 100 mcg IVPUSH Q5M PRN PRN Reason: Pain Acetaminophen 1,000 mg/ Premix 100 mls @ 400 mls/hr IV ONARRIVE [facility] Last Admin: 07/12/18 09:04 Dose: 400 mls/hr Cefazolin Sodium/Dextrose 2 gm (/ Premix) 50 mls @ 100 mls/hr IV ONCALL [facility] Ropivacaine 49.25 ml/Ketorolac Tromethamine 30 mg/Epinephrine HCl 0.5 mg/ Clonidine HCl 80 mcg/ Sodium Chloride 100 mls @ 50 mls/sec INJECT ASDIRECTED [facility] Tranexamic Acid 2,000 mg/ (Sodium Chloride) 120 mls @ 600 mls/hr IV ASDIRECTED ONE Stop: 07/12/18 08:11 Last Admin: 07/12/18 21:12 Dose: Not Given Acetaminophen 1,000 mg/ Premix 100 mls @ 400 mls/hr IV Q6H [facility] Stop: 07/13/18 05:14 Cefazolin Sodium/Dextrose 2 gm (/ Premix) 50 mls @ 100 mls/hr IV Q8H [facility] Stop: 07/13/18 02:29 Last Admin: 07/13/18 01:31 Dose: 100 mls/hr Acetaminophen 1,000 mg/ Premix 100 mls @ 400 mls/hr IV Q6H [facility] Stop: 07/13/18 03:44 Last Admin: 07/13/18 03:09 Dose: 400 mls/hr Ketorolac Tromethamine (Toradol) 30 mg IVPUSH ONARRIVE [facility] Last Admin: 07/12/18 08:56 Dose: 30 mg Ketorolac Tromethamine (Toradol) 30 mg IVPUSH Q6H [facility] Stop: 07/13/18 05:00 Last Admin: 07/12/18 23:55 Dose: 30 mg Lidocaine (Xylocaine-Mpf 2%) Confirm Administered Dose 5 ml .ROUTE .STK-MED ONE Stop: 07/12/18 09:02 Midazolam HCl (Versed 1 Mg/Ml) Confirm Administered Dose 2 mg .ROUTE .STK-MED ONE Stop: 07/12/18 09:03 Morphine Sulfate (Morphine Tile Designer 30 Mg In 30 Ml) 30 mg IV ASDIRECTED PRN; Protocol PRN Reason: Pain Stop: 07/13/18 06:00 Last Admin: 07/12/18 12:30 Dose: 30 mg Ondansetron HCl (Zofran) Confirm Administered Dose 4 mg .ROUTE .STK-MED ONE Stop: 07/12/18 09:02 Oxycodone HCl (Oxycodone) 5 - 10 mg PO Q4H PRN PRN Reason: Pain Last Admin: 07/12/18 21:13 Dose: 10 mg Oxycodone/Acetaminophen (Percocet 325-5 Mg) 1 - 2 tab PO Q4H PRN PRN Reason: Pain Phenylephrine HCl (Phenylephrine In Ns 100 Mcg/Ml) Confirm Administered Dose 1 mg .ROUTE .STK-MED ONE Stop: 07/12/18 10:56 Polyethylene Glycol (Miralax) 17 gm PO DAILY [facility] Propofol (Diprivan 20 Ml) Confirm Administered Dose 600 mg .ROUTE .STK-MED ONE Stop: 07/12/18 09:02 Scopolamine (Transderm-Scop) 1.5 mg TRDERM ONARRIVE [facility] Last Admin: 07/12/18 09:07 Dose: 1.5 mg Tranexamic Acid (Cyklokapron) Confirm Administered Dose 2,000 mg .ROUTE .STK- MED ONE Stop: 07/12/18 08:59 Consult PN Assessment/Plan Procedures: Procedures BX BREAST 1ST LESION US IMAG (03/12/16) COLONOSCOPY AND BIOPSY (03/19/17) COMPLETE CBC W/AUTO DIFF WBC (02/03/17) COMPREHEN METABOLIC PANEL (02/03/17) CT ABD & PELV W/CONTRAST (02/03/17) EMERGENCY DEPT VISIT (02/03/17) EMERGENCY DEPT VISIT (07/13/14) FLUOROSCOPY <1 HR PHYS/QHP (08/14/17) GLUCOSE BLOOD TEST (03/19/17) GLYCOSYLATED HEMOGLOBIN TEST (04/13/18) HOT OR COLD PACKS THERAPY (06/25/15) MANUAL THERAPY 1/> REGIONS (10/30/17) METABOLIC PANEL TOTAL CA (05/07/15) MRI JNT OF LWR EXTRE W/O DYE (05/21/18) ORTHOTIC MGMT&TRAINJ 1ST ENC (09/01/17) OT EVAL LOW COMPLEX 30 MIN (10/30/17) OT EVALUATION (06/07/15) OT RE-EVAL EST PLAN CARE (12/02/17) PROTHROMBIN TIME (02/03/17) PT EVALUATION (02/03/14) RANGE OF MOTION MEASUREMENTS (06/25/15) RANGE OF MOTION MEASUREMENTS (06/25/15) REPAIR WRIST JOINTS (08/14/17) ROUTINE VENIPUNCTURE (04/13/18) THER/PROPH/DIAG INJ IV PUSH (02/03/17) THERAPEUTIC ACTIVITIES (06/25/15) THERAPEUTIC EXERCISES (12/02/17) TISSUE EXAM BY PATHOLOGIST (03/19/17) TRANSPLANT FOREARM TENDON (03/28/15) TRANSPLANT HAND TENDON (08/14/17) URINALYSIS AUTO W/SCOPE (02/03/17) URINE CULTURE/COLONY COUNT (02/03/17) VASOPNEUMATIC DEVICE THERAPY (02/03/14) X-RAY EXAM HIP UNI 2-3 VIEWS (02/11/18) X-RAY EXAM KNEE 4 OR MORE (02/11/18) X-RAY EXAM OF HAND (10/31/14) X-RAY EXAM OF KNEE 3 (10/31/14) (1) Status post right knee replacement SNOMED Code(s): 320821890, 356415048, 706097540 Code(s): Z96.651 - PRESENCE OF RIGHT ARTIFICIAL KNEE JOINT Priority: High Current Visit: Yes (2) Diabetes mellitus type 2 in obese SNOMED Code(s): 19653426 Code(s): E11.69 - TYPE 2 DIABETES MELLITUS WITH OTHER SPECIFIED COMPLICATION ; E66.9 - OBESITY, UNSPECIFIED Priority: High Current Visit: Yes (3) Hypertension SNOMED Code(s): 77313436 Code(s): I10 - ESSENTIAL (PRIMARY) HYPERTENSION Priority: High Current Visit: Yes Qualifiers: Hypertension type: essential hypertension Qualified Code(s): I10 - Essential (primary) hypertension My Orders Last 24 Hours: My Active Orders 07/12/18 15:05 Blood Glucose Check, Bedside [RC] WITHMEALSANDBED Glucose Management Sub Q Reflex [OM.PC] Click To Edit 07/12/18 15:06 Diabetes Education [RC] Click to Edit 07/12/18 21:00 Insulin Aspart [NovoLOG] See Protocol SUBCUT ACBREAKFASTANDBED Patient's Own Medication [Ptom] 1 each PO BEDTIME Patient's Own Medication [Ptom] 4 each PO BID Simvastatin [Zocor] 20 mg PO BEDTIME 07/13/18 09:00 Aspirin 81 mg PO DAILY Atenolol [Tenormin] 25 mg PO DAILY Citalopram [Celexa] 40 mg PO DAILY Famotidine [Pepcid] 40 mg PO DAILY Hydrochlorothiazide/Losartan [Hyzaar 50-12.5 MG] 1 tab PO DAILY
[2018-07-13] MEDS: Acetaminophen/oxyCODONE 325-5 MG Tab PO PRN ×4 (08:31→22:05)
[2018-07-13] MEDS: Celecoxib 100 MG Cap PO SCH ×2 (08:32→20:24)
[2018-07-13] MEDS: Citalopram 20 MG Tab PO SCH (08:32)
[2018-07-13] MEDS: Famotidine 20 MG Tab PO SCH (08:33)
[2018-07-13] MEDS: Hydrochlorothiazide/Losartan 12.5-50 mg Tab PO SCH (08:33)
[2018-07-13] MEDS: Aspirin 81 MG Tab.Chew PO SCH (08:33)
[2018-07-13] MEDS: Fish Oil/Omega-3 Fatty Acids 1 Gm Cap PO SCH ×2 (08:33→20:25)
[2018-07-13] MEDS: Polyethylene Glycol 3350 Powder 17 GM Packet PO SCH (08:33)
[2018-07-13] MEDS: Atenolol 25 MG Tab PO SCH (08:33)
[2018-07-13] MEDS ORDERED: Aspirin 325 MG Tab PO SCH (09:00)
[2018-07-13] MEDS ORDERED: Famotidine 20 MG Tab PO SCH (09:00)
[2018-07-13] MEDS ORDERED: Polyethylene Glycol 3350 Powder 17 GM Packet PO SCH (09:00)
[2018-07-13] MEDS: Multivitamins with Iron/Calcium/Folic Acid/Minerals Tab PO SCH (09:25)
--- NOTE | 2018-07-13 10:21 | PCM48HPAN ---
Post Anesthesia Note - EVALUATION WITHIN 48HRS OF ANESTHETIC Vital Signs in Normal Range: Yes Patient Participated in Evaluation: Yes Respiratory Function Stable: Yes Airway Patent: Yes Cardiovascular Function Stable: Yes Hydration Status Stable: Yes Pain Control Satisfactory: Yes Nausea and Vomiting Control Satisfactory: Yes Mental Status Recovered: Yes Pulse Rate: 62 Resp Rate: 14 Temperature: 97.7 F Blood Pressure: 152/69
--- NOTE | 2018-07-13 14:24 | PCM.SURGPN ---
- General Info POD#: 1 Functional Status: Reports: Pain Controlled - Review of Systems General: Reports: No Symptoms Systems Review Comment:: Patient sitting up in chair. She states she has done well with physical therapy. Her pain has been well-controlled. She does have some nausea with the pain medication. She otherwise has no complaints. - Patient Data Vitals - Most Recent: Last Vital Signs Temp 96.7 F 07/13/18 11:41 Pulse 66 07/13/18 11:41 Resp 20 07/13/18 11:41 BP 139/62 07/13/18 11:41 Pulse Ox 97 07/13/18 11:41 Weight - Most Recent: 90.718 kg I&O - Last 24 Hours: Intake & Output 07/12/18 07/13/18 07/13/18 22:59 06:59 14:59 Intake Total 800 2664 Output Total 900 1975 Balance -100 689 Lab Results Last 24 Hrs: Laboratory Results - last 24 hr 07/12/18 07/13/18 07/13/18 Range/Units 16:00 04:45 04:45 Hgb 11.1 L (12.0-16.0) g/dL Hct 32.8 L (36.0-46.0) % Sodium 140 (136-145) mmol/L Potassium 4.2 (3.5-5.1) mmol/L Chloride 105 (98-107) mmol/L Carbon Dioxide 28.1 (21.0-32.0) mmol/L BUN 17 (7.0-18.0) mg/dL Creatinine 0.9 (0.6-1.0) mg/dL Est Cr Clr Drug Dosing 59.89 mL/min Estimated GFR (MDRD) > 60.0 ml/min Glucose 103 (74-106) mg/dL POC Glucose 83 (60-110) mg/dL Calcium 8.7 (8.5-10.1) mg/dL 07/13/18 Range/Units 11:36 Hgb (12.0-16.0) g/dL Hct (36.0-46.0) % Sodium (136-145) mmol/L Potassium (3.5-5.1) mmol/L Chloride (98-107) mmol/L Carbon Dioxide (21.0-32.0) mmol/L BUN (7.0-18.0) mg/dL Creatinine (0.6-1.0) mg/dL Est Cr Clr Drug Dosing mL/min Estimated GFR (MDRD) ml/min Glucose (74-106) mg/dL POC Glucose 105 (60-110) mg/dL Calcium (8.5-10.1) mg/dL Med Orders - Current: Current Medications Aspirin (Aspirin) 81 mg PO DAILY [facility] Last Admin: 07/13/18 08:33 Dose: 81 mg Atenolol (Tenormin) 25 mg PO DAILY [facility] Last Admin: 07/13/18 08:33 Dose: 25 mg Bisacodyl (Dulcolax) 10 mg RECTAL DAILY PRN PRN Reason: Constipation Celecoxib (Celebrex) 200 mg PO BID [facility] Last Admin: 07/13/18 08:32 Dose: 200 mg Citalopram Hydrobromide (Celexa) 40 mg PO DAILY [facility] Last Admin: 07/13/18 08:32 Dose: 40 mg Diphenhydramine HCl (Benadryl) 25 - 50 mg PO Q6H PRN PRN Reason: Itching Last Admin: 07/12/18 15:05 Dose: 50 mg Docusate Sodium (Colace) 100 mg PO BID PRN PRN Reason: Constipation Last Admin: 07/12/18 21:13 Dose: 100 mg Famotidine (Pepcid) 40 mg PO DAILY [facility] Last Admin: 07/13/18 08:33 Dose: 40 mg HCTZ/Losartan Potassium (Hyzaar 50-12.5 Mg) 1 tab PO DAILY [facility] Last Admin: 07/13/18 08:33 Dose: 1 tab Lactated Ringer's (Ringers, Lactated) 1,000 mls @ 100 mls/hr IV ASDIRECTED [facility] Last Admin: 07/13/18 01:31 Dose: 100 mls/hr Insulin Aspart (Novolog) 0 unit SUBCUT ACBREAKFASTANDBED [facility]; Protocol Last Admin: 07/13/18 07:55 Dose: Not Given Morphine Sulfate (Morphine) 1 - 3 mg IVPUSH Q3H PRN PRN Reason: Pain Multivitamins/Minerals (Thera M Plus) 1 tab PO DAILY [facility] Last Admin: 07/13/18 09:25 Dose: 1 tab Ondansetron HCl (Zofran) 4 mg IVPUSH Q6H PRN PRN Reason: Nausea/Vomiting Last Admin: 07/13/18 13:31 Dose: 4 mg Oxycodone/Acetaminophen (Percocet 325-5 Mg) 1 - 2 tab PO Q4H PRN PRN Reason: Pain Last Admin: 07/13/18 12:23 Dose: 2 tab Niacinamide 100 Mg 1 each PO BEDTIME [facility] Last Admin: 07/12/18 21:15 Dose: 1 each Fish Oil/[place]-3 (Fatty Acids 1 Gm Cap) 4 each PO BID [facility] Last Admin: 07/13/18 08:33 Dose: 4 each Glucosamine & (Chondroitin) 1 each PO DAILY [facility] Last Admin: 07/13/18 09:25 Dose: 1 each Polyethylene Glycol (Miralax) 17 gm PO DAILY [facility] Last Admin: 07/13/18 08:33 Dose: 17 gm Simvastatin (Zocor) 20 mg PO BEDTIME [facility] Last Admin: 07/12/18 21:14 Dose: 20 mg Sodium Chloride (Saline Flush) 10 ml FLUSH ASDIRECTED PRN PRN Reason: Keep Vein Open Sodium Chloride (Saline Flush) 2.5 ml FLUSH ASDIRECTED PRN PRN Reason: Keep Vein Open Discontinued Medications Al Hydroxide/Mg Hydroxide (Mag-Al Plus) 30 ml PO Q4H PRN PRN Reason: Indigestion Al Hydroxide/Mg Hydroxide (Mag-Al Plus) 30 ml PO Q4H PRN PRN Reason: Indigestion Albuterol (Proventil Neb Soln) 2.5 mg NEB ONETIME PRN PRN Reason: Wheezing Aspirin (Aspirin) 325 mg PO BID [facility] Atropine Sulfate (Atropine) 1 mg IVPUSH ASDIRECTED PRN PRN Reason: ACLS Guidelines Atropine Sulfate (Atropine) 0.5 mg IVPUSH ASDIRECTED PRN PRN Reason: Hypo-Perfusion Bisacodyl (Dulcolax) 10 mg RECTAL DAILY PRN PRN Reason: Constipation Bisacodyl (Dulcolax) 10 mg RECTAL DAILY PRN PRN Reason: Constipation Cefazolin Sodium/Dextrose (Ancef) Confirm Administered Dose 2 gm IV .STK-MED ONE Stop: 07/12/18 10:06 Dextrose/Water (Dextrose 50% In Water) 50 ml IVPUSH ASDIRECTED PRN PRN Reason: Hypoglycemia Epinephrine HCl (Adrenalin) 1 mg IVPUSH NOW ONE Stop: 07/12/18 10:55 Last Admin: 07/12/18 21:12 Dose: Not Given Famotidine (Pepcid) 40 mg IVPUSH ONARRIVE [facility] Last Admin: 07/12/18 09:00 Dose: 40 mg Fentanyl (Sublimaze) Confirm Administered Dose 100 mcg .ROUTE .STK-MED ONE Stop: 07/12/18 09:03 Fentanyl (Sublimaze) Confirm Administered Dose 100 mcg .ROUTE .STK-MED ONE Stop: 07/12/18 09:03 Fentanyl (Sublimaze) 50 - 100 mcg IVPUSH Q5M PRN PRN Reason: Pain Acetaminophen 1,000 mg/ Premix 100 mls @ 400 mls/hr IV ONARRIVE [facility] Last Admin: 07/12/18 09:04 Dose: 400 mls/hr Cefazolin Sodium/Dextrose 2 gm (/ Premix) 50 mls @ 100 mls/hr IV ONCALL [facility] Ropivacaine 49.25 ml/Ketorolac Tromethamine 30 mg/Epinephrine HCl 0.5 mg/ Clonidine HCl 80 mcg/ Sodium Chloride 100 mls @ 50 mls/sec INJECT ASDIRECTED [facility] Tranexamic Acid 2,000 mg/ (Sodium Chloride) 120 mls @ 600 mls/hr IV ASDIRECTED ONE Stop: 07/12/18 08:11 Last Admin: 07/12/18 21:12 Dose: Not Given Acetaminophen 1,000 mg/ Premix 100 mls @ 400 mls/hr IV Q6H [facility] Stop: 07/13/18 05:14 Cefazolin Sodium/Dextrose 2 gm (/ Premix) 50 mls @ 100 mls/hr IV Q8H [facility] Stop: 07/13/18 02:29 Last Admin: 07/13/18 01:31 Dose: 100 mls/hr Acetaminophen 1,000 mg/ Premix 100 mls @ 400 mls/hr IV Q6H [facility] Stop: 07/13/18 03:44 Last Admin: 07/13/18 03:09 Dose: 400 mls/hr Ketorolac Tromethamine (Toradol) 30 mg IVPUSH ONARRIVE [facility] Last Admin: 07/12/18 08:56 Dose: 30 mg Ketorolac Tromethamine (Toradol) 30 mg IVPUSH Q6H [facility] Stop: 07/13/18 05:00 Last Admin: 07/12/18 23:55 Dose: 30 mg Lidocaine (Xylocaine-Mpf 2%) Confirm Administered Dose 5 ml .ROUTE .STK-MED ONE Stop: 07/12/18 09:02 Midazolam HCl (Versed 1 Mg/Ml) Confirm Administered Dose 2 mg .ROUTE .STK-MED ONE Stop: 07/12/18 09:03 Morphine Sulfate (Morphine [employer] 30 Mg In 30 Ml) 30 mg IV ASDIRECTED PRN; Protocol PRN Reason: Pain Stop: 07/13/18 06:00 Last Admin: 07/12/18 12:30 Dose: 30 mg Ondansetron HCl (Zofran) Confirm Administered Dose 4 mg .ROUTE .STK-MED ONE Stop: 07/12/18 09:02 Oxycodone HCl (Oxycodone) 5 - 10 mg PO Q4H PRN PRN Reason: Pain Last Admin: 07/12/18 21:13 Dose: 10 mg Oxycodone/Acetaminophen (Percocet 325-5 Mg) 1 - 2 tab PO Q4H PRN PRN Reason: Pain Phenylephrine HCl (Phenylephrine In Ns 100 Mcg/Ml) Confirm Administered Dose 1 mg .ROUTE .STK-MED ONE Stop: 07/12/18 10:56 Polyethylene Glycol (Miralax) 17 gm PO DAILY [facility] Propofol (Diprivan 20 Ml) Confirm Administered Dose 600 mg .ROUTE .STK-MED ONE Stop: 07/12/18 09:02 Scopolamine (Transderm-Scop) 1.5 mg TRDERM ONARRIVE [facility] Last Admin: 07/12/18 09:07 Dose: 1.5 mg Tranexamic Acid (Cyklokapron) Confirm Administered Dose 2,000 mg .ROUTE .STK- MED ONE Stop: 07/12/18 08:59 - Exam Wound/Incisions: Dressing Dry and Intact General: Alert, Oriented Neurological: No New Focal Deficit Psy/Mental Status: Alert, Normal Affect, Normal Mood Physical Findings Comment:: Examination of the knee shows the dressing to be dry and intact. She has no calf tenderness. AT/EHL/gastroc 5/5. Sensation grossly intact. DP/PT pulses 2+. - Problem List & Annotations (1) Status post right knee replacement SNOMED Code(s): 383524442, 064152742, [id number] Code(s): Z96.651 - PRESENCE OF RIGHT ARTIFICIAL KNEE JOINT Status: Acute Priority: High Current Visit: Yes - Problem List Review Problem List Initiated/Reviewed/Updated: Yes - My Orders Last 24 Hours: Active Orders 24 hr Category Date Time Status Blood Glucose Check, Bedside [] WITHMEALSANDBED Care 07/12/18 15:05 Active Communication Order [RC] PRN Care 07/13/18 06:00 Active Diabetes Education [RC] Click to Edit Care 07/12/18 15:06 Active BMP [BASIC METABOLIC PANEL,BMP] [CHEM] AM Lab 07/14/18 05:11 Ordered BMP [BASIC METABOLIC PANEL,BMP] [CHEM] AM Lab 07/15/18 05:11 Ordered HEMOGLOBIN/HEMATOCRIT,HH [HEME] DAILY Lab 07/14/18 06:00 Ordered Acetaminophen/oxyCODONE [Percocet 325-5 MG] Med 07/13/18 08:13 Active 1 - 2 tab PO Q4H PRN Aspirin Med 07/13/18 09:00 Active 81 mg PO DAILY Atenolol [Tenormin] Med 07/13/18 09:00 Active 25 mg PO DAILY Bisacodyl [Dulcolax] Med 07/12/18 15:21 Active 10 mg RECTAL DAILY PRN Celecoxib [CeleBREX] Med 07/13/18 09:00 Active 200 mg PO BID Citalopram [Celexa] Med 07/13/18 09:00 Active 40 mg PO DAILY Famotidine [Pepcid] Med 07/13/18 09:00 Active 40 mg PO DAILY Hydrochlorothiazide/Losartan [Hyzaar 50-12.5 MG] Med 07/13/18 09:00 Active 1 tab PO DAILY Insulin Aspart [NovoLOG] Med 07/12/18 21:00 Active See Protocol SUBCUT ACBREAKFASTANDBED Morphine Med 07/13/18 06:00 Active 1 - 3 mg IVPUSH Q3H PRN Multivitamins w-Iron/Ca/FA/Min [Thera M Plus] Med 07/13/18 09:00 Active 1 tab PO DAILY Patient's Own Medication [Ptom] Med 07/12/18 21:00 Active 1 each PO BEDTIME Patient's Own Medication [Ptom] Med 07/13/18 09:00 Active 1 each PO DAILY Patient's Own Medication [Ptom] Med 07/12/18 21:00 Active 4 each PO BID Polyethylene Glycol 3350 [MiraLAX] Med 07/13/18 09:00 Active 17 gm PO DAILY Simvastatin [Zocor] Med 07/12/18 21:00 Active 20 mg PO BEDTIME Convert IV to Saline Lock [OM.PC] PRN Oth 07/13/18 11:45 Ordered Glucose Management Sub Q Reflex [OM.PC] Click To Edit Ot 07/12/18 15:05 Ordered Medication Orders Aspirin (Aspirin) 81 mg PO DAILY [facility] Last Admin: 07/13/18 08:33 Dose: 81 mg Atenolol (Tenormin) 25 mg PO DAILY [facility] Last Admin: 07/13/18 08:33 Dose: 25 mg Bisacodyl (Dulcolax) 10 mg RECTAL DAILY PRN PRN Reason: Constipation Celecoxib (Celebrex) 200 mg PO BID [facility] Last Admin: 07/13/18 08:32 Dose: 200 mg Citalopram Hydrobromide (Celexa) 40 mg PO DAILY [facility] Last Admin: 07/13/18 08:32 Dose: 40 mg Diphenhydramine HCl (Benadryl) 25 - 50 mg PO Q6H PRN PRN Reason: Itching Last Admin: 07/12/18 15:05 Dose: 50 mg Docusate Sodium (Colace) 100 mg PO BID PRN PRN Reason: Constipation Last Admin: 07/12/18 21:13 Dose: 100 mg Famotidine (Pepcid) 40 mg PO DAILY [facility] Last Admin: 07/13/18 08:33 Dose: 40 mg HCTZ/Losartan Potassium (Hyzaar 50-12.5 Mg) 1 tab PO DAILY [facility] Last Admin: 07/13/18 08:33 Dose: 1 tab Lactated Ringer's (Ringers, Lactated) 1,000 mls @ 100 mls/hr IV ASDIRECTED [facility] Last Admin: 07/13/18 01:31 Dose: 100 mls/hr Infusion: 07/13/18 00:41 Dose: 100 mls/hr Admin: 07/12/18 14:41 Dose: 100 mls/hr Infusion: 07/12/18 14:41 Dose: 100 mls/hr Admin: 07/12/18 08:45 Dose: 100 mls/hr Insulin Aspart (Novolog) 0 unit SUBCUT ACBREAKFASTANDBED [facility]; Protocol Last Admin: 07/13/18 07:55 Dose: Not Given Admin: 07/12/18 21:19 Dose: Morphine Sulfate (Morphine) 1 - 3 mg IVPUSH Q3H PRN PRN Reason: Pain Multivitamins/Minerals (Thera M Plus) 1 tab PO DAILY [facility] Last Admin: 07/13/18 09:25 Dose: 1 tab Ondansetron HCl (Zofran) 4 mg IVPUSH Q6H PRN PRN Reason: Nausea/Vomiting Last Admin: 07/13/18 13:31 Dose: 4 mg Oxycodone/Acetaminophen (Percocet 325-5 Mg) 1 - 2 tab PO Q4H PRN PRN Reason: Pain Last Admin: 07/13/18 12:23 Dose: 2 tab Admin: 07/13/18 08:31 Dose: 1 tab Niacinamide 100 Mg 1 each PO BEDTIME [facility] Last Admin: 07/12/18 21:15 Dose: 1 each Fish Oil/[place]-3 (Fatty Acids 1 Gm Cap) 4 each PO BID [facility] Last Admin: 07/13/18 08:33 Dose: 4 each Admin: 07/12/18 21:15 Dose: 4 each Glucosamine & (Chondroitin) 1 each PO DAILY [facility] Last Admin: 07/13/18 09:25 Dose: 1 each Polyethylene Glycol (Miralax) 17 gm PO DAILY [facility] Last Admin: 07/13/18 08:33 Dose: 17 gm Simvastatin (Zocor) 20 mg PO BEDTIME [facility] Last Admin: 07/12/18 21:14 Dose: 20 mg Sodium Chloride (Saline Flush) 10 ml FLUSH ASDIRECTED PRN PRN Reason: Keep Vein Open Sodium Chloride (Saline Flush) 2.5 ml FLUSH ASDIRECTED PRN PRN Reason: Keep Vein Open - Plan Plan (Free Text/Narrative):: 1. continue current pain management 2. PT--WBAT, continue outpatient PT on discharge 3. ASA 325mg po bid for DVT prophylaxis 4. d/c home today
--- NOTE | 2018-07-13 16:14 | PCM.SURGPN ---
- General Info Date of Service: 07/13/18 (0800) Date of Surgery/Procedure: 07/12/18 POD#: 1 Post-Op Diagnosis: degenerative joint disease, right knee, tricompartmental Admission Diagnosis/Problem: Right knee pain (s/p RIGHT TKA) Functional Status: Reports: Pain Controlled, Tolerating Diet, Ambulating - Review of Systems General: Reports: No Symptoms. Denies: Fever Pulmonary: Reports: No Symptoms Cardiovascular: Reports: No Symptoms Gastrointestinal: Reports: No Symptoms. Denies: Nausea, Vomiting Genitourinary: Reports: No Symptoms (caldwell catheter removed) Musculoskeletal: Reports: Other (post-operative knee pain) Skin: Reports: No Symptoms Neurological: Reports: No Symptoms Psychiatric: Reports: No Symptoms - Patient Data Vitals - Most Recent: Last Vital Signs Temp 35.9 C 07/13/18 11:41 Pulse 66 07/13/18 11:41 Resp 20 07/13/18 11:41 BP 139/62 07/13/18 11:41 Pulse Ox 97 07/13/18 11:41 Weight - Most Recent: 90.718 kg I&O - Last 24 Hours: Intake & Output 07/13/18 07/13/18 07/13/18 06:59 14:59 22:59 Intake Total 2664 Output Total 1975 Balance 689 Lab Results Last 24 Hrs: Laboratory Results - last 24 hr 07/12/18 07/13/18 07/13/18 Range/Units 16:00 04:45 04:45 Hgb 11.1 L (12.0-16.0) g/dL Hct 32.8 L (36.0-46.0) % Sodium 140 (136-145) mmol/L Potassium 4.2 (3.5-5.1) mmol/L Chloride 105 (98-107) mmol/L Carbon Dioxide 28.1 (21.0-32.0) mmol/L BUN 17 (7.0-18.0) mg/dL Creatinine 0.9 (0.6-1.0) mg/dL Est Cr Clr Drug Dosing 59.89 mL/min Estimated GFR (MDRD) > 60.0 ml/min Glucose 103 (74-106) mg/dL POC Glucose 83 (60-110) mg/dL Calcium 8.7 (8.5-10.1) mg/dL 07/13/18 Range/Units 11:36 Hgb (12.0-16.0) g/dL Hct (36.0-46.0) % Sodium (136-145) mmol/L Potassium (3.5-5.1) mmol/L Chloride (98-107) mmol/L Carbon Dioxide (21.0-32.0) mmol/L BUN (7.0-18.0) mg/dL Creatinine (0.6-1.0) mg/dL Est Cr Clr Drug Dosing mL/min Estimated GFR (MDRD) ml/min Glucose (74-106) mg/dL POC Glucose 105 (60-110) mg/dL Calcium (8.5-10.1) mg/dL Med Orders - Current: Current Medications Aspirin (Aspirin) 81 mg PO DAILY [facility] Last Admin: 07/13/18 08:33 Dose: 81 mg Atenolol (Tenormin) 25 mg PO DAILY [facility] Last Admin: 07/13/18 08:33 Dose: 25 mg Bisacodyl (Dulcolax) 10 mg RECTAL DAILY PRN PRN Reason: Constipation Celecoxib (Celebrex) 200 mg PO BID [facility] Last Admin: 07/13/18 08:32 Dose: 200 mg Citalopram Hydrobromide (Celexa) 40 mg PO DAILY [facility] Last Admin: 07/13/18 08:32 Dose: 40 mg Diphenhydramine HCl (Benadryl) 25 - 50 mg PO Q6H PRN PRN Reason: Itching Last Admin: 07/12/18 15:05 Dose: 50 mg Docusate Sodium (Colace) 100 mg PO BID PRN PRN Reason: Constipation Last Admin: 07/12/18 21:13 Dose: 100 mg Famotidine (Pepcid) 40 mg PO DAILY [facility] Last Admin: 07/13/18 08:33 Dose: 40 mg HCTZ/Losartan Potassium (Hyzaar 50-12.5 Mg) 1 tab PO DAILY [facility] Last Admin: 07/13/18 08:33 Dose: 1 tab Lactated Ringer's (Ringers, Lactated) 1,000 mls @ 100 mls/hr IV ASDIRECTED [facility] Last Admin: 07/13/18 01:31 Dose: 100 mls/hr Insulin Aspart (Novolog) 0 unit SUBCUT ACBREAKFASTANDBED [facility]; Protocol Last Admin: 07/13/18 07:55 Dose: Not Given Morphine Sulfate (Morphine) 1 - 3 mg IVPUSH Q3H PRN PRN Reason: Pain Multivitamins/Minerals (Thera M Plus) 1 tab PO DAILY [facility] Last Admin: 07/13/18 09:25 Dose: 1 tab Ondansetron HCl (Zofran) 4 mg IVPUSH Q6H PRN PRN Reason: Nausea/Vomiting Last Admin: 07/13/18 13:31 Dose: 4 mg Oxycodone/Acetaminophen (Percocet 325-5 Mg) 1 - 2 tab PO Q4H PRN PRN Reason: Pain Last Admin: 07/13/18 12:23 Dose: 2 tab Niacinamide 100 Mg 1 each PO BEDTIME [facility] Last Admin: 07/12/18 21:15 Dose: 1 each Fish Oil/[place]-3 (Fatty Acids 1 Gm Cap) 4 each PO BID [facility] Last Admin: 07/13/18 08:33 Dose: 4 each Glucosamine & (Chondroitin) 1 each PO DAILY [facility] Last Admin: 07/13/18 09:25 Dose: 1 each Polyethylene Glycol (Miralax) 17 gm PO DAILY [facility] Last Admin: 07/13/18 08:33 Dose: 17 gm Simvastatin (Zocor) 20 mg PO BEDTIME [facility] Last Admin: 07/12/18 21:14 Dose: 20 mg Sodium Chloride (Saline Flush) 10 ml FLUSH ASDIRECTED PRN PRN Reason: Keep Vein Open Sodium Chloride (Saline Flush) 2.5 ml FLUSH ASDIRECTED PRN PRN Reason: Keep Vein Open Discontinued Medications Al Hydroxide/Mg Hydroxide (Mag-Al Plus) 30 ml PO Q4H PRN PRN Reason: Indigestion Al Hydroxide/Mg Hydroxide (Mag-Al Plus) 30 ml PO Q4H PRN PRN Reason: Indigestion Albuterol (Proventil Neb Soln) 2.5 mg NEB ONETIME PRN PRN Reason: Wheezing Aspirin (Aspirin) 325 mg PO BID [facility] Atropine Sulfate (Atropine) 1 mg IVPUSH ASDIRECTED PRN PRN Reason: ACLS Guidelines Atropine Sulfate (Atropine) 0.5 mg IVPUSH ASDIRECTED PRN PRN Reason: Hypo-Perfusion Bisacodyl (Dulcolax) 10 mg RECTAL DAILY PRN PRN Reason: Constipation Bisacodyl (Dulcolax) 10 mg RECTAL DAILY PRN PRN Reason: Constipation Cefazolin Sodium/Dextrose (Ancef) Confirm Administered Dose 2 gm IV .STK-MED ONE Stop: 07/12/18 10:06 Dextrose/Water (Dextrose 50% In Water) 50 ml IVPUSH ASDIRECTED PRN PRN Reason: Hypoglycemia Epinephrine HCl (Adrenalin) 1 mg IVPUSH NOW ONE Stop: 07/12/18 10:55 Last Admin: 07/12/18 21:12 Dose: Not Given Famotidine (Pepcid) 40 mg IVPUSH ONARRIVE [facility] Last Admin: 07/12/18 09:00 Dose: 40 mg Fentanyl (Sublimaze) Confirm Administered Dose 100 mcg .ROUTE .STK-[facility] ONE Stop: 07/12/18 09:03 Fentanyl (Sublimaze) Confirm Administered Dose 100 mcg .ROUTE .STK-MED ONE Stop: 07/12/18 09:03 Fentanyl (Sublimaze) 50 - 100 mcg IVPUSH Q5M PRN PRN Reason: Pain Acetaminophen 1,000 mg/ Premix 100 mls @ 400 mls/hr IV ONARRIVE [facility] Last Admin: 07/12/18 09:04 Dose: 400 mls/hr Cefazolin Sodium/Dextrose 2 gm (/ Premix) 50 mls @ 100 mls/hr IV ONCALL [facility] Ropivacaine 49.25 ml/Ketorolac Tromethamine 30 mg/Epinephrine HCl 0.5 mg/ Clonidine HCl 80 mcg/ Sodium Chloride 100 mls @ 50 mls/sec INJECT ASDIRECTED [facility] Tranexamic Acid 2,000 mg/ (Sodium Chloride) 120 mls @ 600 mls/hr IV ASDIRECTED [facility] Stop: 07/12/18 08:11 Last Admin: 07/12/18 21:12 Dose: Not Given Acetaminophen 1,000 mg/ Premix 100 mls @ 400 mls/hr IV Q6H [facility] Stop: 07/13/18 05:14 Cefazolin Sodium/Dextrose 2 gm (/ Premix) 50 mls @ 100 mls/hr IV Q8H [facility] Stop: 07/13/18 02:29 Last Admin: 07/13/18 01:31 Dose: 100 mls/hr Acetaminophen 1,000 mg/ Premix 100 mls @ 400 mls/hr IV Q6H [facility] Stop: 07/13/18 03:44 Last Admin: 07/13/18 03:09 Dose: 400 mls/hr Ketorolac Tromethamine (Toradol) 30 mg IVPUSH ONARRIVE [facility] Last Admin: 07/12/18 08:56 Dose: 30 mg Ketorolac Tromethamine (Toradol) 30 mg IVPUSH Q6H [facility] Stop: 07/13/18 05:00 Last Admin: 07/12/18 23:55 Dose: 30 mg Lidocaine (Xylocaine-Mpf 2%) Confirm Administered Dose 5 ml .ROUTE .STK-MED ONE Stop: 07/12/18 09:02 Midazolam HCl (Versed 1 Mg/Ml) Confirm Administered Dose 2 mg .ROUTE .STK-MED ONE Stop: 07/12/18 09:03 Morphine Sulfate (Morphine Library Assistant 30 Mg In 30 Ml) 30 mg IV ASDIRECTED PRN; Protocol PRN Reason: Pain Stop: 07/13/18 06:00 Last Admin: 07/12/18 12:30 Dose: 30 mg Ondansetron HCl (Zofran) Confirm Administered Dose 4 mg .ROUTE .STK-MED ONE Stop: 07/12/18 09:02 Oxycodone HCl (Oxycodone) 5 - 10 mg PO Q4H PRN PRN Reason: Pain Last Admin: 07/12/18 21:13 Dose: 10 mg Oxycodone/Acetaminophen (Percocet 325-5 Mg) 1 - 2 tab PO Q4H PRN PRN Reason: Pain Phenylephrine HCl (Phenylephrine In Ns 100 Mcg/Ml) Confirm Administered Dose 1 mg .ROUTE .STK-MED ONE Stop: 07/12/18 10:56 Polyethylene Glycol (Miralax) 17 gm PO DAILY [facility] Propofol (Diprivan 20 Ml) Confirm Administered Dose 600 mg .ROUTE .STK-MED ONE Stop: 07/12/18 09:02 Scopolamine (Transderm-Scop) 1.5 mg TRDERM ONARRIVE [facility] Last Admin: 07/12/18 09:07 Dose: 1.5 mg Tranexamic Acid (Cyklokapron) Confirm Administered Dose 2,000 mg .ROUTE .STK- MED ONE Stop: 07/12/18 08:59 - Exam Wound/Incisions: Dressing Dry and Intact (surgical dressing removed. incision CDI. ) General: Alert, Oriented HEENT: Pupils Equal Lungs: Normal Respiratory Effort Cardiovascular: Regular Rate GI/Abdominal Exam: Soft Extremities: Other (AT/EHL/gastroc 5/5) Skin: Warm, Dry, Intact Neurological: No New Focal Deficit Psy/Mental Status: Alert, Normal Affect, Normal Mood - Problem List Review Problem List Initiated/Reviewed/Updated: Yes - My Orders Last 24 Hours: Active Orders 24 hr Category Date Time Status Communication Order [RC] PRN Care 07/13/18 06:00 Active Diabetes Education [RC] Click to Edit Care 07/12/18 15:06 Active BMP [BASIC METABOLIC PANEL,BMP] [CHEM] AM Lab 07/14/18 05:11 Ordered BMP [BASIC METABOLIC PANEL,BMP] [CHEM] AM Lab 07/15/18 05:11 Ordered HEMOGLOBIN/HEMATOCRIT,HH [HEME] DAILY Lab 07/14/18 06:00 Ordered Acetaminophen/oxyCODONE [Percocet 325-5 MG] Med 07/13/18 08:13 Active 1 - 2 tab PO Q4H PRN Aspirin Med 07/13/18 09:00 Active 81 mg PO DAILY Atenolol [Tenormin] Med 07/13/18 09:00 Active 25 mg PO DAILY Bisacodyl [Dulcolax] Med 07/12/18 15:21 Active 10 mg RECTAL DAILY PRN Celecoxib [CeleBREX] Med 07/13/18 09:00 Active 200 mg PO BID Citalopram [Celexa] Med 07/13/18 09:00 Active 40 mg PO DAILY Famotidine [Pepcid] Med 07/13/18 09:00 Active 40 mg PO DAILY Hydrochlorothiazide/Losartan [Hyzaar 50-12.5 MG] Med 07/13/18 09:00 Active 1 tab PO DAILY Insulin Aspart [NovoLOG] Med 07/12/18 21:00 Active See Protocol SUBCUT ACBREAKFASTANDBED Morphine Med 07/13/18 06:00 Active 1 - 3 mg IVPUSH Q3H PRN Multivitamins w-Iron/Ca/FA/Min [Thera M Plus] Med 07/13/18 09:00 Active 1 tab PO DAILY Patient's Own Medication [Ptom] Med 07/12/18 21:00 Active 1 each PO BEDTIME Patient's Own Medication [Ptom] Med 07/13/18 09:00 Active 1 each PO DAILY Patient's Own Medication [Ptom] Med 07/12/18 21:00 Active 4 each PO BID Polyethylene Glycol 3350 [MiraLAX] Med 07/13/18 09:00 Active 17 gm PO DAILY Simvastatin [Zocor] Med 07/12/18 21:00 Active 20 mg PO BEDTIME Convert IV to Saline Lock [OM.PC] PRN Oth 07/13/18 11:45 Ordered Medication Orders Aspirin (Aspirin) 81 mg PO DAILY [facility] Last Admin: 07/13/18 08:33 Dose: 81 mg Atenolol (Tenormin) 25 mg PO DAILY [facility] Last Admin: 07/13/18 08:33 Dose: 25 mg Bisacodyl (Dulcolax) 10 mg RECTAL DAILY PRN PRN Reason: Constipation Celecoxib (Celebrex) 200 mg PO BID [facility] Last Admin: 07/13/18 08:32 Dose: 200 mg Citalopram Hydrobromide (Celexa) 40 mg PO DAILY [facility] Last Admin: 07/13/18 08:32 Dose: 40 mg Diphenhydramine HCl (Benadryl) 25 - 50 mg PO Q6H PRN PRN Reason: Itching Last Admin: 07/12/18 15:05 Dose: 50 mg Docusate Sodium (Colace) 100 mg PO BID PRN PRN Reason: Constipation Last Admin: 07/12/18 21:13 Dose: 100 mg Famotidine (Pepcid) 40 mg PO DAILY [facility] Last Admin: 07/13/18 08:33 Dose: 40 mg HCTZ/Losartan Potassium (Hyzaar 50-12.5 Mg) 1 tab PO DAILY [facility] Last Admin: 07/13/18 08:33 Dose: 1 tab Lactated Ringer's (Ringers, Lactated) 1,000 mls @ 100 mls/hr IV ASDIRECTED [facility] Last Admin: 07/13/18 01:31 Dose: 100 mls/hr Infusion: 07/13/18 00:41 Dose: 100 mls/hr Admin: 07/12/18 14:41 Dose: 100 mls/hr Infusion: 07/12/18 14:41 Dose: 100 mls/hr Admin: 07/12/18 08:45 Dose: 100 mls/hr Insulin Aspart (Novolog) 0 unit SUBCUT ACBREAKFASTANDBED [facility]; Protocol Last Admin: 07/13/18 07:55 Dose: Not Given Admin: 07/12/18 21:19 Dose: Morphine Sulfate (Morphine) 1 - 3 mg IVPUSH Q3H PRN PRN Reason: Pain Multivitamins/Minerals (Thera M Plus) 1 tab PO DAILY [facility] Last Admin: 07/13/18 09:25 Dose: 1 tab Ondansetron HCl (Zofran) 4 mg IVPUSH Q6H PRN PRN Reason: Nausea/Vomiting Last Admin: 07/13/18 13:31 Dose: 4 mg Oxycodone/Acetaminophen (Percocet 325-5 Mg) 1 - 2 tab PO Q4H PRN PRN Reason: Pain Last Admin: 07/13/18 12:23 Dose: 2 tab Admin: 07/13/18 08:31 Dose: 1 tab Niacinamide 100 Mg 1 each PO BEDTIME [facility] Last Admin: 07/12/18 21:15 Dose: 1 each Fish Oil/[place]-3 (Fatty Acids 1 Gm Cap) 4 each PO BID [facility] Last Admin: 07/13/18 08:33 Dose: 4 each Admin: 07/12/18 21:15 Dose: 4 each Glucosamine & (Chondroitin) 1 each PO DAILY [facility] Last Admin: 07/13/18 09:25 Dose: 1 each Polyethylene Glycol (Miralax) 17 gm PO DAILY [facility] Last Admin: 07/13/18 08:33 Dose: 17 gm Simvastatin (Zocor) 20 mg PO BEDTIME [facility] Last Admin: 07/12/18 21:14 Dose: 20 mg Sodium Chloride (Saline Flush) 10 ml FLUSH ASDIRECTED PRN PRN Reason: Keep Vein Open Sodium Chloride (Saline Flush) 2.5 ml FLUSH ASDIRECTED PRN PRN Reason: Keep Vein Open - Assessment Assessment (Free Text/Narrative):: s/p RIGHT TKA post-hemorrhagic anemia - Plan Plan (Free Text/Narrative):: Overall, doing well. States she has little pain as long as she is not moving. Up in chair for breakfast. Tolerating po food/fluids without N/V. UO adequate and caldwell catheter removed. Surgical dressing removed. Incision CDI. Large AquaCell applied. Support stockings on. Utilizing [facility] ice to knee. Ambulated with staff yesterday. PT will start this morning. ASA BID will start today for DVT prophylaxis. completed 24 hours of IV antibiotics. VSS/afebrile. Hg 11.1 Hospitalist consulted for medical management of DM. Pending PT sessions today, will discuss discharge home this afternoon.
[2018-07-13] MEDS: Docusate Sodium 100 MG Cap PO PRN (20:24)
[2018-07-13] MEDS: Simvastatin 20 MG Tab PO SCH (20:24)
[2018-07-13] MEDS: NIACINAMIDE 100 MG PO SCH (20:25)
[2018-07-14] MEDS: Acetaminophen/oxyCODONE 325-5 MG Tab PO PRN ×2 (04:03→07:28)
[2018-07-14 05:56] LABS: CHLORIDE,CL 99 mmol/L (98-107); SODIUM,NA 137 mmol/L (136-145)
[2018-07-14] MEDS: Insulin Aspart 100 Units/ML 3 ML Pen SUBCUT SCH (07:23)
[2018-07-14 07:31] VITALS: BP 140/63
[2018-07-14] MEDS: Famotidine 20 MG Tab PO SCH (08:47)
[2018-07-14] MEDS: Hydrochlorothiazide/Losartan 12.5-50 mg Tab PO SCH (08:48)
[2018-07-14] MEDS: Multivitamins with Iron/Calcium/Folic Acid/Minerals Tab PO SCH (08:48)
[2018-07-14] MEDS: Celecoxib 100 MG Cap PO SCH (08:48)
[2018-07-14] MEDS: Aspirin 81 MG Tab.Chew PO SCH (08:48)
[2018-07-14] MEDS: Citalopram 20 MG Tab PO SCH (08:48)
[2018-07-14] MEDS: Atenolol 25 MG Tab PO SCH (08:48)
[2018-07-14] MEDS: Polyethylene Glycol 3350 Powder 17 GM Packet PO SCH (08:50)
[2018-07-14] MEDS: Fish Oil/Omega-3 Fatty Acids 1 Gm Cap PO SCH (08:51)
--- NOTE | 2018-07-14 12:58 | PCM.DCSUM1 ---
Discharge Summary - Hospital Course Free Text/Narrative:: Fanta underwent RIGHT TOTAL KNEE ARTHROPLASTY using patient specific instrumentation under spinal anesthesia with tourniquet time of 42 minutes, by Dr. Jeannette Cason, on 07/12/18. Postoperative diagnosis : degenerative joint disease, Right knee, tricompartmental. She also received hospitalist consultation for management of her DM Type 2. She had no complications in PACU and was transferred to Med/Surg for post- operative care - Discharge Data Discharge Date: 07/14/18 Discharge Disposition: Home, Self-Care 01 Condition: Good - Patient Summary/Data Operative Procedure(s) Performed: R TKA Complications: none Consults: Consultations 07/12/18 11:45 PT Evaluation and Treatment [CONS] Routine 07/12/18 11:58 Consult to Physician [CONS] Routine Hospital Course: POD#1, she reported her pain was well controlled with oral oxycodone. Switched to Percocet 2, which she tolerated without N/V, and received adequate pain control with 2 tabs. Tolerating oral food/fluids POD#1 morning, with caldwell catheter and IV fluids discontinued. VSS/afebrile. Hg stable (POD#1 11.1, POD#2 10.9). Ambulating with staff and physical therapy, but POD#1, physical therapy played her out and she did not feel ready for discharge and stayed overnight. POD#2 she felt ready for discharge. Diligent use of polar care during hospital stay. Compression stockings & SCDs ulitized. ASA started POD#1 for DVT prophylaxis. completed 24 hours of IV antibiotics. Rx written for pain medication. She already had FWW at home. PT scheduled to start 07/15/18 at . - Patient Instructions Other/Special Instructions: Refer to Dr. Jeannette Cason's Post-operative patient instructions for TOTAL KNEE ARTHROPLASTY orange sheet - Discharge Plan Prescriptions/Med Rec: Acetaminophen/oxyCODONE [Percocet 325-5 MG] 1 - 2 tab PO Q4H PRN #60 tablet PRN Reason: Pain Aspirin 325 mg PO BID #60 tab Celecoxib 200 mg PO DAILY #30 capsule Docusate Sodium [Colace] 100 mg PO BID PRN #60 cap PRN Reason: Constipation Polyethylene Glycol 3350 [MiraLAX] 17 gm PO DAILY #600 gram Home Medications: Home Meds Simvastatin [Zocor] 20 mg PO BEDTIME 12/29/13 [History] Niacinamide 1 tab PO BEDTIME 03/26/15 [History] Citalopram Hydrobromide [Celexa] 40 mg PO DAILY 03/17/17 [History] Ivor-3S/DHA/Epa/Fish Oil [Fish Oil Ivor-3 Softgel] 4 tab PO BID 03/17/17 [ History] metFORMIN HCl [Metformin HCl] 2 tab PO BID 03/17/17 [History] Hydrochlorothiazide/Losartan [Hyzaar 50-12.5 MG] 1 tab PO DAILY 08/11/17 [ History] Atenolol 25 mg PO DAILY 07/08/18 [History] Gluc 2KCl/Chondr/Michael Hy/Hy Ac [Glucosamine & Chondroitin Cap] 1 each PO DAILY 07/13/18 [History] Mv-Mn/Folic Acid/Vit [id number] [Alive Once Daily Women 50 Plus] 1 each PO DAILY 07/13/18 [History] Acetaminophen/oxyCODONE [Percocet 325-5 MG] 1 - 2 tab PO Q4H PRN #60 tablet 11/24 [Rx] Aspirin 325 mg PO BID #60 tab 07/14/18 [Rx] Celecoxib 200 mg PO DAILY #30 capsule 07/14/18 [Rx] Docusate Sodium [Colace] 100 mg PO BID PRN #60 cap 07/14/18 [Rx] Insulin Aspart [NovoLOG] 0 unit SUBCUT ACBREAKFASTANDBED pen 07/14/18 [Rx] Patient's Own Medication [Ptom] 1 each PO DAILY each 07/14/18 [Rx] Polyethylene Glycol 3350 [MiraLAX] 17 gm PO DAILY #600 gram 07/14/18 [Rx] Patient Handouts: Aspirin, ASA chewable tablets, Acetaminophen; Oxycodone tablets, Celecoxib capsules, Total Knee Replacement, Care After, [id number]-to-[id number], Docusate capsules, Polyethylene Glycol powder Referrals: Jeannette Cason MD [Physician] - 08/19/18 9:15 am Ellen Gandhi NP [Nurse Practitioner] - 07/22/18 10:30 am - Discharge Summary/Plan Comment DC Time >30 min.: No - General Info Date of Service: 07/14/18 Functional Status: Reports: Pain Controlled, Tolerating Diet, Ambulating, Urinating - Review of Systems General: Reports: No Symptoms. Denies: Fever Pulmonary: Reports: No Symptoms. Denies: Shortness of Breath Cardiovascular: Reports: No Symptoms. Denies: Chest Pain Gastrointestinal: Reports: No Symptoms. Denies: Nausea, Vomiting Musculoskeletal: Reports: Joint Pain (post operative knee pain), Other ( sensation intact to RLE) Skin: Reports: No Symptoms Neurological: Reports: No Symptoms Psychiatric: Reports: No Symptoms - Patient Data Vitals - Most Recent: Last Vital Signs Temp 36.1 C 07/14/18 07:30 Pulse 60 07/14/18 08:48 Resp 15 07/14/18 07:30 BP 140/63 07/14/18 08:48 Pulse Ox 98 07/14/18 07:30 Weight - Most Recent: 90.718 kg I&O - Last 24 hours: Intake & Output 07/13/18 07/14/18 07/14/18 22:59 06:59 14:59 Intake Total 2560 200 Output Total 1000 550 Balance 1560 -350 Lab Results - Last 24 hrs: Laboratory Results - last 24 hr 07/13/18 07/14/18 07/14/18 Range/Units 16:49 05:00 05:00 Hgb 10.9 L (12.0-16.0) g/dL Hct 31.9 L (36.0-46.0) % Sodium 137 (136-145) mmol/L Potassium 3.7 (3.5-5.1) mmol/L Chloride 99 (98-107) mmol/L Carbon Dioxide 30.0 (21.0-32.0) mmol/L BUN 15 (7.0-18.0) mg/dL Creatinine 0.8 (0.6-1.0) mg/dL Est Cr Clr Drug Dosing 67.38 mL/min Estimated GFR (MDRD) > 60.0 ml/min Glucose 109 H (74-106) mg/dL POC Glucose 119 H (60-110) mg/dL Calcium 9.2 (8.5-10.1) mg/dL 07/14/18 Range/Units 11:27 Hgb (12.0-16.0) g/dL Hct (36.0-46.0) % Sodium (136-145) mmol/L Potassium (3.5-5.1) mmol/L Chloride (98-107) mmol/L Carbon Dioxide (21.0-32.0) mmol/L BUN (7.0-18.0) mg/dL Creatinine (0.6-1.0) mg/dL Est Cr Clr Drug Dosing mL/min Estimated GFR (MDRD) ml/min Glucose (74-106) mg/dL POC Glucose 124 H (60-110) mg/dL Calcium (8.5-10.1) mg/dL Med Orders - Current: Current Medications Aspirin (Aspirin) 81 mg PO DAILY [facility] Last Admin: 07/14/18 08:48 Dose: 81 mg Atenolol (Tenormin) 25 mg PO DAILY [facility] Last Admin: 07/14/18 08:48 Dose: 25 mg Bisacodyl (Dulcolax) 10 mg RECTAL DAILY PRN PRN Reason: Constipation Celecoxib (Celebrex) 200 mg PO BID [facility] Last Admin: 07/14/18 08:48 Dose: 200 mg Citalopram Hydrobromide (Celexa) 40 mg PO DAILY [facility] Last Admin: 07/14/18 08:48 Dose: 40 mg Diphenhydramine HCl (Benadryl) 25 - 50 mg PO Q6H PRN PRN Reason: Itching Last Admin: 07/12/18 15:05 Dose: 50 mg Docusate Sodium (Colace) 100 mg PO BID PRN PRN Reason: Constipation Last Admin: 07/13/18 20:24 Dose: 100 mg Famotidine (Pepcid) 40 mg PO DAILY [facility] Last Admin: 07/14/18 08:47 Dose: 40 mg HCTZ/Losartan Potassium (Hyzaar 50-12.5 Mg) 1 tab PO DAILY [facility] Last Admin: 07/14/18 08:48 Dose: 1 tab Lactated Ringer's (Ringers, Lactated) 1,000 mls @ 100 mls/hr IV ASDIRECTED [facility] Last Admin: 07/13/18 01:31 Dose: 100 mls/hr Insulin Aspart (Novolog) 0 unit SUBCUT ACBREAKFASTANDBED [facility]; Protocol Last Admin: 07/14/18 07:23 Dose: Not Given Morphine Sulfate (Morphine) 1 - 3 mg IVPUSH Q3H PRN PRN Reason: Pain Last Admin: 07/13/18 20:24 Dose: 3 mg Multivitamins/Minerals (Thera M Plus) 1 tab PO DAILY [facility] Last Admin: 07/14/18 08:48 Dose: 1 tab Ondansetron HCl (Zofran) 4 mg IVPUSH Q6H PRN PRN Reason: Nausea/Vomiting Last Admin: 07/13/18 13:31 Dose: 4 mg Oxycodone/Acetaminophen (Percocet 325-5 Mg) 1 - 2 tab PO Q4H PRN PRN Reason: Pain Last Admin: 07/14/18 07:28 Dose: 2 tab Niacinamide 100 Mg 1 each PO BEDTIME [facility] Last Admin: 07/13/18 20:25 Dose: Not Given Fish Oil/Ivor-3 (Fatty Acids 1 Gm Cap) 4 each PO BID [facility] Last Admin: 07/14/18 08:51 Dose: 4 each Glucosamine & (Chondroitin) 1 each PO DAILY [facility] Last Admin: 07/14/18 08:51 Dose: 1 each Polyethylene Glycol (Miralax) 17 gm PO DAILY [facility] Last Admin: 07/14/18 08:50 Dose: 17 gm Simvastatin (Zocor) 20 mg PO BEDTIME [facility] Last Admin: 07/13/18 20:24 Dose: 20 mg Sodium Chloride (Saline Flush) 10 ml FLUSH ASDIRECTED PRN PRN Reason: Keep Vein Open Sodium Chloride (Saline Flush) 2.5 ml FLUSH ASDIRECTED PRN PRN Reason: Keep Vein Open Discontinued Medications Al Hydroxide/Mg Hydroxide (Mag-Al Plus) 30 ml PO Q4H PRN PRN Reason: Indigestion Al Hydroxide/Mg Hydroxide (Mag-Al Plus) 30 ml PO Q4H PRN PRN Reason: Indigestion Albuterol (Proventil Neb Soln) 2.5 mg NEB ONETIME PRN PRN Reason: Wheezing Aspirin (Aspirin) 325 mg PO BID [facility] Atropine Sulfate (Atropine) 1 mg IVPUSH ASDIRECTED PRN PRN Reason: ACLS Guidelines Atropine Sulfate (Atropine) 0.5 mg IVPUSH ASDIRECTED PRN PRN Reason: Hypo-Perfusion Bisacodyl (Dulcolax) 10 mg RECTAL DAILY PRN PRN Reason: Constipation Bisacodyl (Dulcolax) 10 mg RECTAL DAILY PRN PRN Reason: Constipation Cefazolin Sodium/Dextrose (Ancef) Confirm Administered Dose 2 gm IV .STK-MED ONE Stop: 07/12/18 10:06 Dextrose/Water (Dextrose 50% In Water) 50 ml IVPUSH ASDIRECTED PRN PRN Reason: Hypoglycemia Epinephrine HCl (Adrenalin) 1 mg IVPUSH NOW ONE Stop: 07/12/18 10:55 Last Admin: 07/12/18 21:12 Dose: Not Given Famotidine (Pepcid) 40 mg IVPUSH ONARRIVE [facility] Last Admin: 07/12/18 09:00 Dose: 40 mg Fentanyl (Sublimaze) Confirm Administered Dose 100 mcg .ROUTE .STK-MED ONE Stop: 07/12/18 09:03 Fentanyl (Sublimaze) Confirm Administered Dose 100 mcg .ROUTE .STK-MED ONE Stop: 07/12/18 09:03 Fentanyl (Sublimaze) 50 - 100 mcg IVPUSH Q5M PRN PRN Reason: Pain Acetaminophen 1,000 mg/ Premix 100 mls @ 400 mls/hr IV ONARRIVE [facility] Last Admin: 07/12/18 09:04 Dose: 400 mls/hr Cefazolin Sodium/Dextrose 2 gm (/ Premix) 50 mls @ 100 mls/hr IV ONCALL [facility] Ropivacaine 49.25 ml/Ketorolac Tromethamine 30 mg/Epinephrine HCl 0.5 mg/ Clonidine HCl 80 mcg/ Sodium Chloride 100 mls @ 50 mls/sec INJECT ASDIRECTED [facility] Tranexamic Acid 2,000 mg/ (Sodium Chloride) 120 mls @ 600 mls/hr IV ASDIRECTED ONE Stop: 07/12/18 08:11 Last Admin: 07/12/18 21:12 Dose: Not Given Acetaminophen 1,000 mg/ Premix 100 mls @ 400 mls/hr IV Q6H [facility] Stop: 07/13/18 05:14 Cefazolin Sodium/Dextrose 2 gm (/ Premix) 50 mls @ 100 mls/hr IV Q8H [facility] Stop: 07/13/18 02:29 Last Admin: 07/13/18 01:31 Dose: 100 mls/hr Acetaminophen 1,000 mg/ Premix 100 mls @ 400 mls/hr IV Q6H [facility] Stop: 07/13/18 03:44 Last Admin: 07/13/18 03:09 Dose: 400 mls/hr Ketorolac Tromethamine (Toradol) 30 mg IVPUSH ONARRIVE [facility] Last Admin: 07/12/18 08:56 Dose: 30 mg Ketorolac Tromethamine (Toradol) 30 mg IVPUSH Q6H [facility] Stop: 07/13/18 05:00 Last Admin: 07/12/18 23:55 Dose: 30 mg Lidocaine (Xylocaine-Mpf 2%) Confirm Administered Dose 5 ml .ROUTE .STK-MED ONE Stop: 07/12/18 09:02 Midazolam HCl (Versed 1 Mg/Ml) Confirm Administered Dose 2 mg .ROUTE .STK-MED ONE Stop: 07/12/18 09:03 Morphine Sulfate (Morphine Body Cleaner 30 Mg In 30 Ml) 30 mg IV ASDIRECTED PRN; Protocol PRN Reason: Pain Stop: 07/13/18 06:00 Last Admin: 07/12/18 12:30 Dose: 30 mg Ondansetron HCl (Zofran) Confirm Administered Dose 4 mg .ROUTE .STK-MED ONE Stop: 07/12/18 09:02 Oxycodone HCl (Oxycodone) 5 - 10 mg PO Q4H PRN PRN Reason: Pain Last Admin: 07/12/18 21:13 Dose: 10 mg Oxycodone/Acetaminophen (Percocet 325-5 Mg) 1 - 2 tab PO Q4H PRN PRN Reason: Pain Phenylephrine HCl (Phenylephrine In Ns 100 Mcg/Ml) Confirm Administered Dose 1 mg .ROUTE .STK-MED ONE Stop: 07/12/18 10:56 Polyethylene Glycol (Miralax) 17 gm PO DAILY [facility] Propofol (Diprivan 20 Ml) Confirm Administered Dose 600 mg .ROUTE .STK-MED ONE Stop: 07/12/18 09:02 Scopolamine (Transderm-Scop) 1.5 mg TRDERM ONARRIVE [facility] Last Admin: 07/12/18 09:07 Dose: 1.5 mg Tranexamic Acid (Cyklokapron) Confirm Administered Dose 2,000 mg .ROUTE .STK- MED ONE Stop: 07/12/18 08:59 - Exam General: Reports: Alert, Oriented, Cooperative, No Acute Distress HEENT: Reports: Pupils Equal Lungs: Reports: Normal Respiratory Effort Cardiovascular: Reports: Regular Rate GI/Abdominal Exam: Soft Extremities: Normal Inspection, Normal Range of Motion, No Pedal Edema, Normal Capillary Refill (AT/EHL/gastroc 5/5 Sensation intact to RLE) Skin: Reports: Warm, Dry Wound/Incisions: Reports: Dressing Dry and Intact (1cm shadow center of AquaCell bandage) Neurological: Reports: No New Focal Deficit Psy/Mental Status: Reports: Alert, Normal Affect, Normal Mood
== END 2018-07-14 12:40 | disposition home or self-care (01) | DRG 302 ==
LOC: MW.SDS 08:21 → MW.MS 12:52 → MW.SDS 07-13 08:22 → MW.MS 07-13 08:25
PROVIDERS: ADMIT Internal Medicine; ATTEND Orthopaedic Surgery
PROC: 0SRC0J9 Replacement of Right Knee Joint with Synthetic Substitute, Cemented, Open Approach (ICD-10-PCS; principal; 2018-07-12)
DX: M17.11 Unilateral primary osteoarthritis, right knee (principal); E11.42 Type 2 diabetes mellitus with diabetic polyneuropathy; E11.69 Type 2 diabetes mellitus with other specified complication; M94.261 Chondromalacia, right knee; M25.761 Osteophyte, right knee; G47.33 Obstructive sleep apnea (adult) (pediatric); I10 Essential (primary) hypertension; F32.9 Major depressive disorder, single episode, unspecified; E78.5 Hyperlipidemia, unspecified; E78.00 Pure hypercholesterolemia, unspecified; K21.9 Gastro-esophageal reflux disease without esophagitis; F41.9 Anxiety disorder, unspecified; D50.0 Iron deficiency anemia secondary to blood loss (chronic); E66.9 Obesity, unspecified; Z68.33 Body mass index [BMI] 33.0-33.9, adult; Z96.652 Presence of left artificial knee joint; Z79.82 Long term (current) use of aspirin; Z79.899 Other long term (current) drug therapy; Z88.6 Allergy status to analgesic agent; Z88.5 Allergy status to narcotic agent; Z86.010 Personal history of colon polyps; Z87.440 Personal history of urinary (tract) infections; Z88.8 Allergy status to other drugs, medicaments and biological substances; Z79.84 Long term (current) use of oral hypoglycemic drugs
CPT/HCPCS: 36415; 73560-26-RT; 73560-RT; 80048; 82962; 85014; 85018; 86850; 86900; 86901; 88305; 88311; 97110-GP; 97116-GP; 97161-GP; A9270-GY; C1713; C1776; J0131; J0171; J0690; J0735; J1815-GY; J1885; J2001; J2250; J2270; J2274; J2370; J2405; J2704; J2795; J3010; J3490; J7050; J7120

== ENCOUNTER 2020-04-08 17:53 | Emergency (ER) | payer BC ==
[2020-04-08] MEDS ORDERED: Sodium Chloride 0.9% 2.5 ML Syringe FLUSH PRN (17:59)
[2020-04-08] MEDS ORDERED: Sodium Chloride 0.9% 10 ML Syringe FLUSH PRN (17:59)
--- NOTE | 2020-04-08 18:22 | PCM.SN.2 ---
#1 Interpretation EKG Date: 04/08/20 Time: 18:10 Rhythm: NSR Rate (Beats/Min): 78 [place]: Normal P-Wave: Present QRS: Normal ST-T: Depressed (in lead II by 1mm) QT: Normal [place]/PQ Interval: 160 Comparison: NA - No Prior EKG
[2020-04-08 18:32] LABS: BLOOD UREA NITROGEN,BUN 16 mg/dL (7.0-18.0); CHLORIDE,CL 101 mmol/L (98-107); GLUCOSE RANDOM 172 mg/dL (74-106); POTASSIUM,K 3.8 mmol/L (3.5-5.1); SODIUM,NA 138 mmol/L (136-145)
--- NOTE | 2020-04-08 18:58 | EDM.PDOC ---
ED HPI GENERAL MEDICAL PROBLEM - General Chief Complaint: Chest Pain Stated Complaint: CHEST PAIN Time Seen by Provider: 04/08/20 17:58 Source of Information: Reports: Patient History Limitations: Reports: No Limitations - History of Present Illness INITIAL COMMENTS - FREE TEXT/NARRATIVE: HISTORY AND PHYSICAL: History of present illness: Patient is a 64-year-old female who presents to the emergency room with complaints of chest pain which is now resolved. She reports prior to arrival she and her were face timing her grandchildren when she leaned forward and developed sharp pressure type pain to her mid sternum. She sat for a few minutes and then got up, pain did not fluctuate with rest or movement. She does have nitroglycerin available to her, although she has never had to take it before. Her primary care provider, Dr. Edwin Johns had prescribed this for her as she has had episodes of chest pain in the past. She allowed the pain to carry on for probably 5 minutes before taking a nitro, 5 minutes thereafter her pain had resolved. As her drove her to the emergency department she developed a headache and felt weak and dizzy. Her current symptoms are generalized weakness and feeling fatigued. Patient denies any fever, chills, headache, change in vision, syncope or near syncope. Denies any current chest pain, back pain, shortness of breath or cough. Denies any abdominal pain, nausea, vomiting, diarrhea, constipation or dysuria. Has not noted any blood in urine or stool. Patient has been eating and drinking appropriately. Review of systems: As per history of present illness and below otherwise all systems reviewed and negative. Past medical history: As per history of present illness and as reviewed below otherwise noncontributory. Surgical history: As per history of present illness and as reviewed below otherwise noncontributory. Social history: See social history for further information Family history: As per history of present illness and as reviewed below otherwise noncontributory. Physical exam: General: Well developed and well nourished 64 year old female. Alert and orientated x 3. Nontoxic in appearance and in no acute distress. Vital signs are stable and have been reviewed by me. Nursing notes were reviewed. HEENT: Atraumatic, normocephalic, pupils equal and reactive bilaterally, negative for conjunctival pallor or scleral icterus, mucous membranes moist, throat clear, neck supple, nontender, trachea midline. No drooling or trismus noted. No meningeal signs. No hot potato voice noted. Lungs: Clear to auscultation, breath sounds equal bilaterally, chest nontender. Normal work of breathing, no accessory muscles used. Heart: S1S2, regular rate and rhythm without overt murmur Abdomen: Soft, nondistended, nontender. Negative for masses or hepatosplenomegaly. Negative for costovertebral tenderness. Pelvis: Stable nontender. Skin: Intact, warm, dry. No lesions or rashes noted. Hematologic: No petechiae or purpra. Mucosa appropriate color and normal nail bed color and refill. Extremities: Atraumatic, moves all extremities per self without difficulty or deficits, negative for cords or calf pain. Neurovascular unremarkable. Neuro: Awake, alert, oriented. Cranial nerves II through XII unremarkable. Cerebellum unremarkable. Motor and sensory unremarkable throughout. Exam nonfocal. Psychiatric: Mood and affect are appropriate. Normal thought process. Answering questions appropriately. Notes: Patient rates on the a moderate score for MedCal Heart Score. Her initial troponin is negative, will repeat a second troponin. Discussed with patient the need for the repeat troponin and possibly admission for further observation. Other remaining lab work is unremarkable. Chest x-ray shows no acute findings. She has been pain-free since arrival. Weakness has improved. Patient's repeat troponin is within normal limits. Patient states she feels much improved and would like to be discharged home, currently asymptomatic. She declines wanting to be admitted. I have spoken with the patient/caregiver and discussed today's findings, in addition to providing specific details for plan of care. Reassessment at the time of disposition demonstrates that the patient is in no acute distress. The patient has remained stable throughout the entire ED visit and is without objective evidence for acute process requiring urgent intervention or hospitalization. The patient is stable for discharge, counseling was provided and we discussed in great detail signs and symptoms that would prompt them to return to the Emergency Department. Medication, follow up and supportive care measures were reviewed and discussed. Voices understanding and is agreeable to plan of care. Denies any further questions or concerns at this time. Diagnostics: CBC, CMP, Troponin, EKG, CXR, Therapeutics: IV fluids Prescription: None Impression: Chest Pain Plan: 1. Today your lab work (basic labs, heart enzymes, COVID-19) and chest x-ray were normal. 2. Start a baby aspirin once daily. Use your nitro as directed and as needed. 3. We encourage you to follow up with your primary care provider and/or card iologist in the next few days for re-evaluation and further care/management. If your symptoms should worsen, new symptoms develop or any of the signs and symptoms we discussed should arise please return to the emergency room or call 911 (if needed). Definitive disposition and diagnosis as appropriate pending reevaluation and review of above. - Related Data Allergies Allergy/AdvReac Type Severity Reaction Status Date / Time NÉSTOR Inhibitors Allergy Nausea and Verified 04/08/20 17:57 Vomiting codeine Allergy Vomiting Verified 04/08/20 17:57 tramadol Allergy Vomiting Verified 04/08/20 17:57 Angiotensin Allergy Vomiting Uncoded 04/08/20 17:57 PET DANDER Allergy Sneezing Uncoded 04/08/20 17:57 Home Meds: Home Meds Simvastatin [Zocor] 20 mg PO BEDTIME 12/29/13 [History] Tom Bean-3S/DHA/Epa/Fish Oil [Fish Oil [place] Bean-3 Softgel] 4 tab PO BID 03/17/17 [History] metFORMIN HCl [Metformin HCl] 2 tab PO BID 03/17/17 [History] atenoloL [Atenolol] 25 mg PO DAILY 07/08/18 [History] Glucosam/Chondr/Collagn/Hyalur [Glucosamine & Chondroitin Cap] 1 each PO BID 07/13/18 [History] Mv-Mn/Folic Acid/Vit [id number] [Alive Once Daily Women 50 Plus] 1 each PO DAILY 07/13/18 [History] Celecoxib 200 mg PO DAILY #30 capsule 07/14/18 [Rx] Aspirin 325 mg PO ASDIRECTED 04/08/20 [History] Desvenlafaxine [Desvenlafaxine ER] tab PO DAILY 04/08/20 [History] Losartan [Cozaar] 50 mg PO DAILY 04/08/20 [History] Nitroglycerin [Nitrostat] 1 tab PO TID PRN 04/08/20 [History] Orchex 1 tab PO BID 04/08/20 [History] hydroCHLOROthiazide [Hydrochlorothiazide] 1 tab PO DAILY 04/08/20 [History] Past Medical History HEENT History: Reports: Allergic Rhinitis, Other (See Below) Other HEENT History: wears glasses, has upper front dental implant Cardiovascular History: Reports: High Cholesterol, Hypertension Respiratory History: Reports: Sleep Apnea Other Respiratory History: Sleep apnea uses CPAP Gastrointestinal History: Reports: Colon Polyp, Diverticulosis, GERD, Hemorrhoids Genitourinary History: Reports: UTI, Recurrent 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, Musculoskeletal History: Reports: Arthritis Neurological History: Reports: Neuropathy, Peripheral Psychiatric History: Reports: Anxiety, Depression Endocrine/Metabolic History: Reports: Diabetes, Type II, Obesity/BMI 30+ Hematologic History: Reports: None Immunologic History: Reports: None Oncologic (Cancer) History: Reports: None Dermatologic History: Reports: None - Infectious Disease History Infectious Disease History: Reports: Measles - Past Surgical History Head Surgeries/Procedures: Reports: None GI Surgical History: Reports: Colonoscopy Female Surgical History: Reports: Cystoscopy, Endometrial Ablation, Tubal Ligation, Other (See Below) Other Female Surgeries/Procedures: Hysteroscopy with Uterine ablation Musculoskeletal Surgical History: Reports: Arthroscopic Knee, Carpal Tunnel, Knee Replacement Other Musculoskeletal Surgeries/Procedures:: Left and Right Knee arthrosocopies, Left Total Knee Replacment 4 years ago. , surgery to paolo thumbs, [facility]; right TKA on 07/12/18 Social & Family History - Family History Family Medical History: Noncontributory - Tobacco Use Tobacco Use Status *Q: Never Tobacco User - Caffeine Use Caffeine Use: Reports: Coffee, Soda, Tea - Recreational Drug Use Recreational Drug Use: No - Living Situation & Occupation Living situation: Reports: , with Significant Other Occupation: Retired ED ROS GENERAL - Review of Systems Review Of Systems: Comprehensive ROS is negative, except as noted in HPI. ED EXAM, GENERAL - Physical Exam Exam: See Below (See dictation) Course - Vital Signs Last Recorded V/S: Last Vital Signs Temp 97.4 F 04/08/20 17:54 Pulse 73 04/08/20 19:30 Resp 12 04/08/20 19:30 BP 151/65 H 04/08/20 19:30 Pulse Ox 96 04/08/20 19:30 - Orders/Labs/Meds Orders: Active Orders 24 hr Category Date Time Status EKG Documentation Completion [RC] STAT Care 04/08/20 17:59 Active Sodium Chloride 0.9% [Saline Flush] Med 04/08/20 17:59 Active 10 ml FLUSH ASDIRECTED PRN Sodium Chloride 0.9% [Saline Flush] Med 04/08/20 17:59 Active 2.5 ml FLUSH ASDIRECTED PRN Saline Lock Insert [OM.PC] Stat Oth 04/08/20 17:59 Ordered Medication Orders Sodium Chloride (Saline Flush) 10 ml FLUSH ASDIRECTED PRN PRN Reason: Keep Vein Open Last Admin: 04/08/20 18:28 Dose: 10 ml Documented by: ANH Sodium Chloride (Saline Flush) 2.5 ml FLUSH ASDIRECTED PRN PRN Reason: Keep Vein Open Last Admin: 04/08/20 18:28 Dose: 2.5 ml Documented by: ANH Labs: Laboratory Tests 04/08/20 04/08/20 04/08/20 Range/Units 18:00 18:00 18:25 WBC 6.93 (4.0-11.0) K/uL RBC 4.86 (4.30-5.90) M/uL Hgb 15.0 (12.0-16.0) g/dL Hct 43.0 (36.0-46.0) % MCV 88.5 (80.0-98.0) fL MCH 30.9 (27.0-32.0) pg MCHC 34.9 (31.0-37.0) g/dL RDW Std Deviation 43.0 (28.0-62.0) fl RDW Coeff of She 13 (11.0-15.0) % Plt Count 267 (150-400) K/uL MPV 9.60 (7.40-12.00) fL Neut % (Auto) 58.7 (48.0-80.0) % Lymph % (Auto) 28.3 (16.0-40.0) % Andrews % (Auto) 9.2 (0.0-15.0) % Eos % (Auto) 3.5 (0.0-7.0) % Baso % (Auto) 0.3 (0.0-1.5) % Neut # (Auto) 4.1 (1.4-5.7) K/uL Lymph # (Auto) 2.0 (0.6-2.4) K/uL Andrews # (Auto) 0.6 (0.0-0.8) K/uL Eos # (Auto) 0.2 (0.0-0.7) K/uL Baso # (Auto) 0.0 (0.0-0.1) K/uL Nucleated RBC % 0.0 /100WBC Nucleated RBCs # 0 K/uL Sodium 138 (136-145) mmol/L Potassium 3.8 (3.5-5.1) mmol/L Chloride 101 (98-107) mmol/L Carbon Dioxide 25.0 (21.0-32.0) mmol/L BUN 16 (7.0-18.0) mg/dL Creatinine 0.8 (0.6-1.0) mg/dL Est Cr Clr Drug Dosing 65.63 mL/min Estimated GFR (MDRD) > 60.0 ml/min Glucose 172 H (74-106) mg/dL Calcium 9.6 (8.5-10.1) mg/dL Total Bilirubin 0.5 (0.2-1.0) mg/dL AST 42 H (15-37) IU/L ALT 53 (14-63) IU/L Alkaline Phosphatase 67 (46-116) U/L Troponin I < 0.050 (0.000-0.056) ng/mL Total Protein 7.4 (6.4-8.2) g/dL Albumin 4.5 (3.4-5.0) g/dL Globulin 2.9 (2.6-4.0) g/dL Albumin/Globulin Ratio 1.6 (0.9-1.6) SARS-CoV-2 RNA (CASTRO) NEGATIVE (NEGATIVE) 04/08/20 Range/Units 20:47 WBC (4.0-11.0) K/uL RBC (4.30-5.90) M/uL Hgb (12.0-16.0) g/dL Hct (36.0-46.0) % MCV (80.0-98.0) fL MCH (27.0-32.0) pg MCHC (31.0-37.0) g/dL RDW Std Deviation (28.0-62.0) fl RDW Coeff of She (11.0-15.0) % Plt Count (150-400) K/uL MPV (7.40-12.00) fL Neut % (Auto) (48.0-80.0) % Lymph % (Auto) (16.0-40.0) % Andrews % (Auto) (0.0-15.0) % Eos % (Auto) (0.0-7.0) % Baso % (Auto) (0.0-1.5) % Neut # (Auto) (1.4-5.7) K/uL Lymph # (Auto) (0.6-2.4) K/uL Andrews # (Auto) (0.0-0.8) K/uL Eos # (Auto) (0.0-0.7) K/uL Baso # (Auto) (0.0-0.1) K/uL Nucleated RBC % /100WBC Nucleated RBCs # K/uL Sodium (136-145) mmol/L Potassium (3.5-5.1) mmol/L Chloride (98-107) mmol/L Carbon Dioxide (21.0-32.0) mmol/L BUN (7.0-18.0) mg/dL Creatinine (0.6-1.0) mg/dL Est Cr Clr Drug Dosing mL/min Estimated GFR (MDRD) ml/min Glucose (74-106) mg/dL Calcium (8.5-10.1) mg/dL Total Bilirubin (0.2-1.0) mg/dL AST (15-37) IU/L ALT (14-63) IU/L Alkaline Phosphatase (46-116) U/L Troponin I < 0.050 (0.000-0.056) ng/mL Total Protein (6.4-8.2) g/dL Albumin (3.4-5.0) g/dL Globulin (2.6-4.0) g/dL Albumin/Globulin Ratio (0.9-1.6) SARS-CoV-2 RNA (CASTRO) (NEGATIVE) Meds: Medications Generic Name Dose Route Start Last Admin Trade Name Freq PRN Reason Stop Dose Admin Sodium Chloride 10 ml 04/08/20 17:59 04/08/20 18:28 Saline Flush FLUSH 10 ml ASDIRECTED PRN Administration Keep Vein Open Sodium Chloride 2.5 ml 04/08/20 17:59 04/08/20 18:28 Saline Flush FLUSH 2.5 ml ASDIRECTED PRN Administration Keep Vein Open Departure - Departure Time of Disposition: 21:24 Disposition: Home, Self-Care 01 Clinical Impression: Chest pain Qualifiers: Chest pain type: unspecified Qualified Code(s): R07.9 - Chest pain, unspecified Instructions: Angina, [id number] Referrals: Edwin Johns MD [Primary Care Provider] - Forms: ED Department Discharge Additional Instructions: The following information is given to patients seen in the emergency department who are being discharged to home. This information is to outline your options for follow-up care. We provide all patients seen in our emergency department with a follow-up referral. The need for follow-up, as well as the timing and circumstances, are variable depending upon the specifics of your emergency department visit. If you don't have a primary care physician on staff, we will provide you with a referral. We always advise you to contact your personal physician following an emergency department visit to inform them of the circumstance of the visit and for follow-up with them and/or the need for any referrals to a consulting sp ecialist. The emergency department will also refer you to a specialist when appropriate. This referral assures that you have the opportunity for follow-up care with a specialist. All of these measure are taken in an effort to provide you with optimal care, which includes your follow-up. Under all circumstances we always encourage you to contact your private physician who remains a resource for coordinating your care. When calling for follow-up care, please make the office aware that this follow-up is from your recent emergency room visit. If for any reason you are refused follow-up, please contact the [facility] Emergency Department at and asked to speak to the emergency department charge nurse. [facility] [address] [place] [id number] [address] [address] Thank you for choosing the [facility] emergency department in [place] for your medical needs today. It was a pleasure caring for you. Today you were seen in the emergency department for chest pain. 1. Today your lab work (basic labs, heart enzymes, COVID-19) and chest x-ray were normal. 2. Start a baby aspirin once daily. Use your nitro as directed and as needed. 3. We encourage you to follow up with your primary care provider and/or weaver hand loom in the next few days for re-evaluation and further care/management. If your symptoms should worsen, new symptoms develop or any of the signs and symptoms we discussed should arise please return to the emergency room or call 911 (if needed). Sepsis Event Note (ED) - Evaluation Sepsis Screening Result: No Definite Risk - Focused Exam Vital Signs: Vital Signs Temp Pulse Resp BP Pulse Ox 04/08/20 19:30 73 12 151/65 H 96 04/08/20 18:30 75 17 161/72 H 96 04/08/20 17:54 97.4 F 82 18 196/87 H 96 - My Orders Last 24 Hours: My Active Orders 04/08/20 17:59 EKG Documentation Completion [RC] STAT Sodium Chloride 0.9% [Saline Flush] 10 ml FLUSH ASDIRECTED PRN Sodium Chloride 0.9% [Saline Flush] 2.5 ml FLUSH ASDIRECTED PRN Saline Lock Insert [OM.PC] Stat - Assessment/Plan Last 24 Hours: My Active Orders 04/08/20 17:59 EKG Documentation Completion [RC] STAT Sodium Chloride 0.9% [Saline Flush] 10 ml FLUSH ASDIRECTED PRN Sodium Chloride 0.9% [Saline Flush] 2.5 ml FLUSH ASDIRECTED PRN Saline Lock Insert [OM.PC] Stat
--- NOTE | 2020-04-08 19:34 | CR ---
Indication: Chest pain Technique: Chest 1 view Comparison: None Findings/Impression: Cardiovascular and mediastinum: Heart size and vasculature are normal in caliber and appearance. Mediastinum is within normal limits. Lungs and pleural space: Lungs are clear. No sign of infiltrate or mass. No sign of pleural effusion. No pneumothorax. Bones and soft tissues: No significant findings. Dictated by Kaylan Byers MD @ Apr 08 2020 7:31PM Signed by Dr. Kaylan Byers @ Apr 08 2020 7:32PM
[2020-04-08 21:33] VITALS: BP 150/63; PULSE 69
== END 2020-04-08 21:38 | disposition home or self-care (01) ==
LOC: MW.ED 17:53
DX: R07.9 Chest pain, unspecified (principal); K21.9 Gastro-esophageal reflux disease without esophagitis; I10 Essential (primary) hypertension; E78.00 Pure hypercholesterolemia, unspecified; E66.9 Obesity, unspecified; E11.42 Type 2 diabetes mellitus with diabetic polyneuropathy; Z20.828 Contact with and (suspected) exposure to other viral communicable diseases; Z88.5 Allergy status to narcotic agent; Z88.8 Allergy status to other drugs, medicaments and biological substances; Z79.84 Long term (current) use of oral hypoglycemic drugs; Z79.899 Other long term (current) drug therapy
CPT/HCPCS: 36415; 71045; 71045-26; 80053; 84484; 85025; 93005; 93010; 99283; 99285-25; U0002